=== PATIENT | female | born 1970 | race Caucasian/White ===

== ENCOUNTER 2017-01-14 19:31 | Emergency (ER) | payer SELFPAY ==
[2017-01-14] MEDS ORDERED: Cyclobenzaprine TAB* 10 MG PO ONE ×2 (21:56→22:06)
[2017-01-14] MEDS ORDERED: HYDROcodone/ACETAMIN 5-325 MG* 1 TAB PO ONE ×2 (21:56→22:06)
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
--- NOTE | 2017-01-14 23:06 | RAD ---
INDICATION: Chest wall pain. COMPARISON: There are no prior studies available for comparison. TECHNIQUE: A portable view of the chest was obtained. FINDINGS: Cardiac and mediastinal contours appear to be within normal limits. The lungs are underinflated and clear. No pleural effusion or pneumothorax is seen. IMPRESSION: NO EVIDENCE FOR ACUTE DISEASE.
[2017-01-15 01:38] VITALS: BP 105/65
== END 2017-01-14 23:30 | disposition home or self-care (01) ==
LOC: ED 19:31
DX: S10.93XA Contusion of unspecified part of neck, initial encounter (principal); R07.9 Chest pain, unspecified; R07.89 Other chest pain; V49.9XXA Car occupant (driver) (passenger) injured in unspecified traffic accident, initial encounter; Y93.9 Activity, unspecified; Y92.9 Unspecified place or not applicable; Y99.9 Unspecified external cause status; Z87.891 Personal history of nicotine dependence
CPT/HCPCS: 71010; 93005; 99283; A9270-GY

== ENCOUNTER 2017-04-17 15:53 | Inpatient (IN) | payer BC ==
[2017-04-17] MEDS ORDERED: Acetaminophen TAB* 325 MG PO ONE (16:59)
[2017-04-17] MEDS ORDERED: NS 0.9% 1000 ML* 3,000 ML IV ONE (16:59)
--- NOTE | 2017-04-17 18:42 | RAD ---
INDICATION: Fever and pneumonia COMPARISON: Chest x-ray dated January 14, 2017 TECHNIQUE: Single AP portable view of the chest was obtained. FINDINGS: Image quality is compromised due to the relative inferiority of a portable chest x-ray and the patient's obese body habitus. The heart and mediastinum exhibit normal size and contour. The lung volumes appear low likely due to poor inspiratory effort. Lungs are grossly clear. There is no evidence of a large pleural effusion. Visualized bones are normal for the patient's age. IMPRESSION: Image quality is limited by the inherent inferiority a portable chest x-ray and further limited by the patient's obese body habitus. The lung volumes appear low which May simply be due to poor inspiratory effort. I recommend standard chest x-ray in the AP and lateral view to better discern any cardiopulmonary pathology.
--- NOTE | 2017-04-17 18:55 | ED ---
I, Oh,Soohthaiun, scribed for Kayode Streeter MD on 04/17/17 at 1724 . Skin Complaint - HPI Summary HPI Summary: This 46 y/o female presents to ED for skin boil on right buttock since 6 days ago. Pt was getting out of shower when she became weak in legs, fell down, and burst the boil with drainage. She also reports difficulty getting back up. Positive subjective fever, decreased appetite, n/v. Temperature of 100.2 F is noted at time of triage. Negative abd pain, dysuria, or leg pain. Hot compresses did not make it better. Sitting makes the pain worse. PMHx includes HTN, DM, and HLD. Family member present at bedside reports that pt has hx of skin infection. Allergies information with PCN is reviewed and confirmed. Plan of care involving CT scan is discussed, and pt is agreeable. - History of Current Complaint Chief Complaint: EDRashSkinAbscess Time Seen by Provider: 04/17/17 16:57 Stated Complaint: BOIL,FALL Hx Obtained From: Patient, Medical Records Onset/Duration: Still Present Timing: Constant Pain Intensity: 8 Pain Scale Used: 0-10 Numeric Skin Location: Other: - right buttock Aggravating Symptom(s): Other: - sitting Alleviating Symptom(s): Heat Associated Signs & Symptoms: Nausea, Vomiting, Fever - Allergy/Home Medications Allergies/Adverse Reactions: Allergies Allergy/AdvReac Type Severity Reaction Status Date / Time Penicillins [PCN] Allergy Rash Verified 01/14/17 20:29 PMH/Surg Hx/FS Hx/Imm Hx Endocrine/Hematology History: Reports: Hx Diabetes Cardiovascular History: Reports: Hx Hypercholesterolemia, Hx Hypertension Infectious Disease History: No Infectious Disease History: Denies: Traveled Outside the [place] in Last 30 Days - Family History Known Family History: Positive: Hypertension - Social History Alcohol Use: Rare Substance Use Type: Reports: None Smoking Status (MU): Former Smoker Review of Systems Positive: Fever Positive: Vomiting, Nausea, Other - decreased appetite. Negative: Abdominal Pain Negative: dysuria Negative: Other - leg pain Positive: Other - "boil" at right buttock Neurological: Other - Positive for fall Positive: Weakness - general All Other Systems Reviewed And Are Negative: Yes Physical Exam - Summary Physical Exam Summary: The patient is well-nourished in no acute distress and in no acute pain. The skin is warm to touch. 12 cm x 19 cm fluctuance noted. Negative drainage site. HEENT: The head is normocephalic and atraumatic. The pupils are equal and reactive. The conjunctivae are clear and without drainage. Nares are patent and without drainage. Mouth reveals moist mucous membranes and the throat is without erythema and exudate. The external ears are intact. The ear canals are patent and without drainage. The tympanic membranes are intact. Neck is supple with full range of motion and non-tender. Respiratory: Chest is non-tender. Lungs are clear to auscultation and breath sounds are symmetrical and equal. Cardiovascular: Hear is regular rate and rhythm. There is no murmur or rub auscultated. There is no peripheral edema and pulses are symmetrical and equal. Abdomen: The abdomen is soft and non-tender. Musculoskeletal: There is no back pain noted. Extremities are non-tender with full range of motion. There is good capillary refill. There is no peripheral edema or calf tenderness elicited. Neurological: Patient is alert and oriented to person, place and time. The patient has symmetrical motor strength in all four extremities. Cranial nerves are grossly intact. Deep tendon reflexes are symmetrical and equal in all four extremities. Psychiatric: The patient has an appropriate affect and does not exhibit any anxiety or depression. Examined in presence of vivien Neely as female medical bill processor. Triage Information Reviewed: Yes Vital Signs On Initial Exam: Initial Vitals Temp Pulse Resp BP Pulse Ox 100.2 F 115 16 101/78 96 04/17/17 15:58 04/17/17 15:58 04/17/17 15:58 04/17/17 15:58 04/17/17 15:58 Vital Signs Reviewed: Yes Diagnostics - Vital Signs Vital Signs Temp Pulse Resp BP Pulse Ox 04/17/17 15:58 100.2 F 115 16 101/78 96 - Laboratory Lab Statement: Any lab studies that have been ordered have been reviewed, and results considered in the medical decision making process. - Radiology CXR Radiology Interpretation Completed By: Radiologist - Pending at this moment. See EMR for official reading. - CT Ab/P CT Interpretation Completed By: Radiologist - Pending at this moment. See EMR for official reading. Course/Dx - Course Assessment/Plan: This 46 y/o female presents to ED for right buttock abscess that wsa "popped" this morning when pt got out of shower and fell. Pt reports difficulty getting back up due to general weakness. Upon examination, pt is noted with 19 cm x 12 cm abscess, fluctuant, across right buttock. Pt is warm to touch. Temperature of 100.2 F is noted at triage. CT Ab/P, CXR, blooidwork are pending. Pt is signed out at shift change. - Differential Diagnoses - Skin Complaint Differential Diagnoses: Abscess, Cellulitis, Other - sepsis, dehyration, dm - Diagnoses Provider Diagnoses: Abscess of right buttock Discharge - Discharge Plan Condition: Stable Disposition: OTHER Discharge Disposition Comment: Signed out at shift change. CT Ab/P, CXR, and bloodwork. Referrals: Immanuel CAMPBELL,Tmi Cam [Primary Care Provider] - The documentation as recorded by the Gopal puga Soohyun accurately reflects the service I personally performed and the decisions made by me, Kayode Streeter MD.
[2017-04-17 18:58] LABS: Hematocrit 36 % (35-47); Hemoglobin 11.2 g/dl (12.0-16.0); Mean Corpuscular HGB Conc 32 g/dl (31-36); Mean Corpuscular Hemoglobin 30 pg (27-31); Mean Corpuscular Volume 95 fL (80-97); Mean Platelet Volume 10 um3 (7.4-10.4); Red Blood Count 3.73 10^6/ul (4.0-5.4); Red Cell Distribution Width 14 % (10.5-15); White Blood Count 32.6 10^3/ul (3.5-10.8)
[2017-04-17 18:59] LABS: Comments Flag Yes
[2017-04-17 19:00] LABS: Add Diff/Slide Review? Slide Review Added
[2017-04-17 19:14] LABS: Albumin 2.1 g/dL (3.2-5.2); BUN/Creatinine Ratio 23.8 (8-20); C Reactive Protein 295.51 mg/L (< 5.00); Calcium 8.6 mg/dL (8.6-10.3); EGFR African American 44.8 (>60); EGFR Non-African American 34.9 (>60); Potassium 3.8 mmol/L (3.5-5.0); Total Bilirubin 0.4 mg/dL (0.2-1.0); Total Protein 6.1 g/dL (6.4-8.9)
[2017-04-17 19:17] LABS: Troponin I 0.14 ng/mL (<0.04)
[2017-04-17] MEDS ORDERED: Insulin REGULAR(*) 1 UNITS UNIT IV ONE (19:20)
[2017-04-17] MEDS ORDERED: Iodixanol* (CONTRAST) 320 MG/ML 100 ML SDV IV ONE (19:27)
--- NOTE | 2017-04-17 20:18 | RAD ---
CLINICAL HISTORY: Abscess overlying the right buttock with complaints of feeling "on well" with chills and loss of appetite. COMPARISON: None TECHNIQUE: Contrast enhanced CT examination of the abdomen and pelvis from the lung bases through the initial tuberosities. The patient received 141 mL Visipaque 320 intravenously prior to imaging.The patient received oral contrast as well prior to imaging. FINDINGS: The left lateral anterior abdominal wall and left flank are partially obscured due to the patient's body habitus exceeding the size of the CT gantry. VISUALIZED LUNG BASES: The visualized lung bases are grossly clear. There is no pleural effusion. ABDOMEN AND PELVIS: The liver, spleen, pancreas and adrenal glands are grossly normal in appearance. The gallbladder is normal. The kidneys are normal in appearance without focal mass, calcification or signs of hydronephrosis. Evaluation is limited without oral contrast. The small and large bowel are not distended. The patient's normal appendix is identified in the right lower quadrant with air partially filling the lumen (image 67 of 128). There is no gross retroperitoneal or mesenteric lymphadenopathy. In the superior lateral aspect of the right retroperitoneal fat there is a fluid density structure measuring 3.6 cm in greatest axial dimension (image 34 of 128). The pelvic viscera is normal in appearance. In the right inguinal region there are cluster of top normal but not pathologically enlarged subcutaneous lymph nodes measuring up to 9 mm in short axis diameter. There is coarse calcification of the lower abdominal aorta extending into the bilateral common iliac arteries There is induration overlying the right greater than left subcutaneous tissue of the buttocks. There is induration extends to the midline where there is at least one focus of gas and a partially fluid density collection measuring 15 x 36 mm in the axial plane (image 90 December 19, 2027). Degenerative changes include multilevel loss of intervertebral disc height involving the lower thoracic and lumbar spine.There are no sinister bone lesions. IMPRESSION: 1. There is mixed attenuation collection in the subcutaneous tissue at the midline right buttock including subcutaneous fluid and at least one focus of gas. CT findings are consistent with subcutaneous abscess or possibly a pilonidal cyst infection. 2. There are cluster of top normal but not pathologically enlarged lymph nodes in the right inguinal region. Please correspond to any clinical symptoms. 3. There are additional chronic and degenerative changes described in the body the report.
[2017-04-17] MEDS ORDERED: Acetaminophen TAB* 325 MG PO PRN (20:33)
[2017-04-17] MEDS ORDERED: Dextrose 50% Syringe 50 ML* 25 GM/50 ML SYRINGE IV PUSH PRN (20:33)
[2017-04-17] MEDS ORDERED: Vancomycin(*) 1,500 MG in NS 0.9% 250 ML* 250 ML IVPB ONE (20:40)
[2017-04-17] MEDS ORDERED: NS 0.9% 1000 ML* 1,000 ML IV SCH (20:45)
[2017-04-17 20:56] LABS: Venous Bicarbonate HCO3 21.6 mmol/L (24-28)
[2017-04-17] MEDS ORDERED: Cefepime(*) 2 GM in NS 0.9% 50 ML* 50 ML IVPB SCH (21:00)
[2017-04-17 21:09] LABS: BUN/Creatinine Ratio 21.8 (8-20); EGFR African American 43.3 (>60); EGFR Non-African American 33.6 (>60); Potassium 3.5 mmol/L (3.5-5.0)
[2017-04-17 21:15] LABS: Troponin I 0.12 ng/mL (<0.04)
[2017-04-17] MEDS: HYDROmorphone* 1 MG/ML 1 ML SYR IV SLOW PU PRN (22:04)
[2017-04-17] MEDS ORDERED: Al Hydrox/Mg Hydrox/Simet LIQ* 30 ML UDC PO PRN (22:12)
[2017-04-17] MEDS: Ondansetron INJ* 2 MG/ML VIAL IV PRN (22:17)
[2017-04-17] MEDS: Heparin VIAL(*) 5000 UNITS/ML VIAL (FIVE THOUSAND) SUBCUT SCH (22:36)
[2017-04-17] MEDS: NS 0.9% w/ 20 Meq KCL 1000 ML* 1,000 ML IV SCH (23:14)
[2017-04-17] MEDS: Insulin LISPRO* 1 UNITS UNIT SUBCUT SCH (23:17)
[2017-04-18 00:53] LABS: Calcium 7.7 mg/dL (8.6-10.3); EGFR African American 44.2 (>60); EGFR Non-African American 34.4 (>60); Potassium 3.8 mmol/L (3.5-5.0)
[2017-04-18 00:58] LABS: Troponin I 0.13 ng/mL (<0.04)
[2017-04-18] MEDS: Insulin LISPRO* 1 UNITS UNIT SUBCUT SCH ×14 (01:14→20:56)
[2017-04-18] MEDS ORDERED: Vancomycin per Pharmacy* NOTE FOLLOW UP PRN (01:53)
[2017-04-18 05:02] LABS: Add Diff/Slide Review? Slide Review Added; Comments Flag Yes; Hematocrit 31 % (35-47); Mean Corpuscular HGB Conc 33 g/dl (31-36); Mean Corpuscular Hemoglobin 31 pg (27-31); Mean Corpuscular Volume 94 fL (80-97); Mean Platelet Volume 10 um3 (7.4-10.4); Red Blood Count 3.26 10^6/ul (4.0-5.4); Red Cell Distribution Width 13 % (10.5-15); White Blood Count 28.2 10^3/ul (3.5-10.8)
[2017-04-18 05:08] LABS: BUN/Creatinine Ratio 21.2 (8-20); Calcium 7.8 mg/dL (8.6-10.3); EGFR African American 43.3 (>60); EGFR Non-African American 33.6 (>60); Potassium 3.5 mmol/L (3.5-5.0)
[2017-04-18] MEDS: Omeprazole CAP* 20 MG PO SCH (05:21)
[2017-04-18] MEDS: Ondansetron INJ* 2 MG/ML VIAL IV PRN ×3 (05:22→21:05)
[2017-04-18] MEDS: Heparin VIAL(*) 5000 UNITS/ML VIAL (FIVE THOUSAND) SUBCUT SCH ×3 (05:48→22:24)
[2017-04-18] MEDS: NS 0.9% w/ 20 Meq KCL 1000 ML* 1,000 ML IV SCH ×3 (06:16→22:17)
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
[2017-04-18] MEDS: Vancomycin(*) 1,250 MG in NS 0.9% 250 ML* 250 ML IVPB SCH ×2 (10:35→22:22)
[2017-04-18 10:42] LABS: BUN/Creatinine Ratio 21.8 (8-20); Calcium 7.7 mg/dL (8.6-10.3); EGFR African American 46.2 (>60); EGFR Non-African American 35.9 (>60); Potassium 3.8 mmol/L (3.5-5.0)
[2017-04-18] MEDS ORDERED: Insulin GLARGINE(*) 1 UNITS UNIT SUBCUT ONE ×2 (10:59→21:00)
[2017-04-18] MEDS: Cefepime(*) 2 GM in NS 0.9% 50 ML* 50 ML IVPB SCH (11:37)
--- NOTE | 2017-04-18 12:44 | PN ---
Subjective Date of Service: 04/18/17 Interval History: Ms. Whitehead states that she is feeling a bit better than yesterday though she continues to feel tired and have significant pain in her right buttock. She denies chest pain, SOB, nausea, or abdominal pain. Objective Active Medications: Acetaminophen (Tylenol Tab*) 650 mg PO Q4H PRN Al Hydrox/Mg Hydrox/Simethicone (Maalox Plus*) 30 ml PO Q2H PRN Atorvastatin Calcium (Lipitor*) 20 mg PO 1700 JOSE Cyclobenzaprine HCl (Flexeril Tab*) 10 mg PO TID PRN Dextrose (D50w Syringe 50 Ml*) 12.5 gm IV PUSH .FOR FS < 60 - SS PRN Heparin Sodium (Porcine) (Heparin Vial(*)) 5,000 units SUBCUT Q8HR JOSE Hydromorphone HCl (Dilaudid Iv*) 1 mg IV SLOW PU Q4H PRN Potassium Chloride/Sodium Chloride (Ns 0.9% W/ 20 Meq Kcl 1000 Ml*) 1,000 mls @ 150 mls/hr IV PER RATE JOSE Cefepime HCl 2 gm/ Sodium (Chloride) 50 mls @ 100 mls/hr IVPB 0000,1200 JOSE Vancomycin HCl 1,250 mg/ (Sodium Chloride) 250 mls @ 166.667 mls/hr IVPB Q12H JOSE Insulin Glargine (Lantus(*)) 30 units SUBCUT ONCE ONE Insulin Human Lispro (Humalog*) 0 units SUBCUT FS Q2 ICU JOSE Losartan Potassium (Cozaar Tab*) 50 mg PO DAILY JOSE Omeprazole (Prilosec Cap*) 20 mg PO 0600 JOSE Ondansetron HCl (Zofran Inj*) 4 mg IV Q4H PRN Pharmacy Consult (Vancomycin Per Pharmacy*) 1 note FOLLOW UP . PRN Pharmacy Profile Note (Vancomycin Trough Check) 1 note FOLLOW UP 0930 ONE Vital Signs 04/17/17 04/17/17 04/17/17 21:07 21:27 21:30 Temperature Pulse Rate 114 110 105 Respiratory Rate Blood Pressure 163/81 180/108 (mmHg) O2 Sat by Pulse 94 95 93 Oximetry 04/17/17 04/17/17 04/17/17 21:36 21:40 21:52 Temperature 99.6 F Pulse Rate 97 Respiratory Rate Blood Pressure 148/75 (mmHg) O2 Sat by Pulse 96 Oximetry 04/17/17 04/17/17 04/17/17 21:59 22:00 22:04 Temperature 99.2 F Pulse Rate 86 105 Respiratory 16 21 25 Rate Blood Pressure 148/75 155/66 (mmHg) O2 Sat by Pulse 96 95 Oximetry 04/17/17 04/17/17 04/17/17 22:15 22:30 22:45 Temperature Pulse Rate 99 100 105 Respiratory 24 23 25 Rate Blood Pressure 135/69 122/60 120/59 (mmHg) O2 Sat by Pulse 95 94 96 Oximetry 04/17/17 04/17/17 04/17/17 23:00 23:15 23:29 Temperature Pulse Rate 106 105 104 Respiratory 23 23 22 Rate Blood Pressure 121/63 120/63 (mmHg) O2 Sat by Pulse 95 96 96 Oximetry 04/17/17 04/17/17 04/17/17 23:30 23:45 23:53 Temperature Pulse Rate 105 105 Respiratory 22 22 25 Rate Blood Pressure 117/65 134/69 (mmHg) O2 Sat by Pulse 96 96 Oximetry 04/18/17 04/18/17 04/18/17 00:00 00:01 00:15 Temperature 98.5 F Pulse Rate 105 106 106 Respiratory 22 22 23 Rate Blood Pressure 136/64 131/68 (mmHg) O2 Sat by Pulse 97 97 96 Oximetry 04/18/17 04/18/17 04/18/17 00:30 01:00 01:30 Temperature Pulse Rate 104 108 Respiratory 22 23 Rate Blood Pressure 131/68 125/67 136/71 (mmHg) O2 Sat by Pulse 96 96 Oximetry 04/18/17 04/18/17 04/18/17 02:00 02:30 03:00 Temperature Pulse Rate 107 107 103 Respiratory 23 25 24 Rate Blood Pressure 145/76 124/55 135/70 (mmHg) O2 Sat by Pulse 96 95 95 Oximetry 04/18/17 04/18/17 04/18/17 03:30 04:00 04:30 Temperature 98.1 F Pulse Rate 103 104 104 Respiratory 23 25 25 Rate Blood Pressure 144/71 127/72 144/71 (mmHg) O2 Sat by Pulse 96 96 96 Oximetry 04/18/17 04/18/17 04/18/17 05:00 05:30 06:00 Temperature Pulse Rate 105 108 107 Respiratory 25 27 26 Rate Blood Pressure 107/72 129/63 134/67 (mmHg) O2 Sat by Pulse 96 95 97 Oximetry 04/18/17 04/18/17 04/18/17 06:30 07:00 07:30 Temperature Pulse Rate 108 111 107 Respiratory 25 22 25 Rate Blood Pressure 139/67 137/52 121/60 (mmHg) O2 Sat by Pulse 96 97 96 Oximetry 04/18/17 04/18/17 04/18/17 08:00 08:30 09:00 Temperature 100.6 F Pulse Rate 104 101 95 Respiratory 25 21 19 Rate Blood Pressure 121/57 127/59 128/75 (mmHg) O2 Sat by Pulse 95 97 97 Oximetry 04/18/17 04/18/17 04/18/17 09:30 10:00 10:30 Temperature Pulse Rate 96 97 Respiratory 24 24 Rate Blood Pressure 136/74 134/70 131/75 (mmHg) O2 Sat by Pulse 96 97 Oximetry 04/18/17 04/18/17 11:00 11:30 Temperature Pulse Rate 100 94 Respiratory 24 22 Rate Blood Pressure 143/76 134/68 (mmHg) O2 Sat by Pulse 97 96 Oximetry Oxygen Devices in Use Now: None Appearance: Female lying in bed in NAD Eyes: No Scleral Icterus Ears/Nose/Mouth/Throat: Mucous Membranes Moist Neck: Trachea Midline Respiratory: Symmetrical Chest Expansion and Respiratory Effort, Clear to Auscultation Cardiovascular: NL Sounds; No Murmurs; No JVD, No Edema Abdominal: NL Sounds; No Tenderness; No Distention Lymphatic: No Cervical Adenopathy Extremities: No Edema Skin: - - Right medial buttock edematous with erythema Neurological: Alert and Oriented x 3, NL Muscle Strength and Tone Nutrition: Taking PO's Result Diagrams: 04/18/17 04:35 04/18/17 10:00 Microbiology and Other Data: Microbiology 04/17/17 21:55 Nasal Screen MRSA (PCR)(ELADIO) - Final Nasal Mrsa Negative Assess/Plan/Problems-Billing Assessment: Ms. Whitehead is a 46 yo female with a PMH of DM, obesity, HTN who was admitted on 04/17/17 with right buttock abscess and marked hyperglycemia. - Patient Problems (1) Abscess Comment: - CT confirms abscess to right buttock. - WBC remains > 20 but improved, Tmax 100.6. CRP ~ 300. - Appreciate surgical consult, plan for OR today for I&D. - Continue vanco and cefepime, ID consult pending. (2) Diabetes Comment: - BG remains elevated. - Resume lower dose home lantus while NPO. - HgbA1c 14. (3) Hypertension Comment: - SBP 130-140s. - Continue home losartan. (4) DVT prophylaxis Comment: - Heparin SQ. (5) Full code status Status and Disposition: Inpatient with expected LOS > 2 days. Home when medically stable.
[2017-04-18] MEDS ORDERED: Cisatracurium* 2 MG/ML MDV 5 ML ONE (13:07)
[2017-04-18] MEDS ORDERED: Midazolam* 1 MG/ML 2 ML VIAL (2 MG) ONE (13:09)
[2017-04-18] MEDS ORDERED: KETAMINE HCL* 50 MG/ML 10 ML VIAL ONE (13:28)
[2017-04-18] MEDS ORDERED: fentaNYL* 50 MCG/ML 2 ML VIAL (100 MCG VIAL) ONE ×2 (13:28→14:28)
[2017-04-18] MEDS ORDERED: Famotidine IV* 10 MG/ML 2 ML (20 mg) ONE (13:29)
[2017-04-18] MEDS ORDERED: Propofol* 10 MG/ML 20 ML BTL IV PUSH ONE (13:29)
[2017-04-18] MEDS ORDERED: Lidocaine 2% PF * 5 ML VIAL ONE (13:29)
[2017-04-18] MEDS ORDERED: Dexamethasone IV* 4 MG/ML 1 ML (4 MG) ONE (13:29)
[2017-04-18] MEDS ORDERED: Phenylephrine IV* 40 MCG/ML 10 ML SYRINGE ONE (13:31)
[2017-04-18] MEDS ORDERED: Ondansetron INJ* 2 MG/ML VIAL IV PRN (13:54)
--- NOTE | 2017-04-18 14:06 | PN ---
Progress Note - Progress Note Date of Service: 04/18/17 Note: Brief Operative Note: Pre-op: Albina-rectal abscess, Leukocytosis Post-op: same Procedure: Incision and drainage of perirectal abscess. Surgeon: Dr. Mueller Supervisor Spinning: None EBL: Minimal Anaesthesia: MAC and local Fluids: LR 1000 cc Specimen: None Catheter: None Drains: None Findings; See dictated op note
[2017-04-18] MEDS: fentaNYL* 50 MCG/ML 2 ML VIAL (100 MCG VIAL) IV PRN ×2 (14:28→14:33)
[2017-04-18] MEDS ORDERED: HYDROmorphone* 1 MG/ML 1 ML SYR ONE (14:30)
[2017-04-18] MEDS: HYDROmorphone* 1 MG/ML 1 ML SYR IV SLOW PU PRN ×2 (14:32→21:05)
[2017-04-18] MEDS ORDERED: Insulin LISPRO* 1 UNITS UNIT SUBCUT ONE (14:43)
[2017-04-18] MEDS: Atorvastatin* 20 MG TAB PO SCH (16:17)
--- NOTE | 2017-04-18 20:31 | CONS ---
CC: Dr. nKutson; Dr. iTm Gambino * CONSULTATION REPORT: DATE OF CONSULT: 04/18/17 HISTORY: The patient is a 46-year-old female, who presents to the hospital with DKA and a perirectal infection. She was admitted by the hospitalist service and they have asked me to consult regarding the perianal infection. She does not have any prior history of perianal abscesses or fissures or Crohn' s disease or colitis or anything of the sort. She says this just started as a kind of pimple that started growing and getting more painful. She was trying warm soaks, but it kept advancing, so she presented to the emergency room. She is an obese diabetic. PHYSICAL EXAM: She is morbidly obese. She does not appear acutely ill. She is alert and coherent. She is complaining of pain in the right perianal area. On examination, there is erythema and induration from just below the coccyx down to the perianal area on the right side of midline, it does not cross over to the left side appreciably. There is some induration and tenderness all along this area. Maybe 5 cm above the anus, there is an area of what appears to be maximal induration and maximal fluctuance, so I think this is where the worst of the abscess is and that would correlate with the CT scan as well. There is a little bit of clear fluid oozing forth from this area, but it is not really opened. DIAGNOSTIC STUDIES/LAB DATA: I reviewed her CT scan and her laboratory studies. IMPRESSION: A 46-year-old morbidly obese diabetic, who comes in with diabetic ketoacidosis secondary to a perianal infection. PLAN: She needs an incision and drainage of the abscess and her sugars have been brought under better control, so I think she is in reasonable shape to go to the operating room and I do not think that she is going to be able to get too much better in terms of her medical situation until the infection is better controlled, so I think she needs incision and drainage of her right perirectal abscess and she is agreeable to having this done in the operating room sometime today. [id number]/[facility] #: [id number] MTDD
--- NOTE | 2017-04-18 22:20 | CONS ---
CONSULTATION REPORT: DATE OF CONSULT: 04/18/17 REQUESTING PHYSICIAN: Nolvia Guillen NP CONSULTING SERVICE: Infectious Disease. REASON FOR CONSULT: Right buttock abscess. IMPRESSION: 1. Right medial buttock, large area of induration, erythema, warmth consistent with abscess. She has not had a history of these. 2. Insulin-dependent diabetes, at the time of admission with hyperglycemia, hyperosmolar nonketotic state. RECOMMENDATION: Continue vancomycin and cefepime. We will await the cultures from incision and debridement. Usually these are due to gram-positives including staph or strep, but with immunocompromise due to insulin-dependent diabetes, gram- negatives are a consideration. HISTORY OF PRESENT ILLNESS: This is a 46-year-old diabetic admitted with malaise, fatigue, right buttock pain for about a week. Because of progression of her symptoms, it did not improve with warm compress and because of draining fluid, chills, fever, and anorexia, she came to the hospital yesterday. Her creatinine was 1.6, glucose was 750. She was started on insulin, vancomycin, cefepime. CT was done that confirmed the soft tissue abscess versus pilonidal cyst. She had been seen by Dr. Knutson who is going to take her to the OR today. Her pain is persistent, severe, worse with movement. No hip pain. Fevers are improved. She has no chills or sweats. She is hungry. She has not had an infection like this in the past. PAST MEDICAL HISTORY: 1. Insulin-dependent diabetes. 2. Hypertension. 3. Hyperlipidemia. 4. Obesity. ALLERGIES: PENICILLIN, rash as a child. MEDICATIONS: 1. Tylenol. 2. Lipitor. 3. Cefepime 2 g every 12 hours. 4. Insulin glargine. 5. Insulin lispro. 6. Omeprazole. 7. Vancomycin 1250 mg every 12 hours. SOCIAL HISTORY: Past smoker. She lives in [place]. She is a counselor. She is . FAMILY HISTORY: Mother is alive at 65 with seasonal allergies. Father alive at 65 with hypertension. REVIEW OF SYSTEMS: All negative to a full review of systems except as noted above. PHYSICAL EXAM: Vital Signs: Temperature 38, heart rate 97, respiratory rate 20 , blood pressure 134/70, O2 sat 97% on room air. General: She is awake, not in distress. Neurologic: She is oriented x3. Follows all commands. Answers all questions appropriately. Moves all extremities. HEENT: There is no conjunctival hemorrhage. Oropharynx without lesions. Mucous membranes are dry. Neck is supple without nuchal rigidity. Lymph Nodes: There is no supraclavicular, inguinal, axillary or epitrochlear lymphadenopathy. Heart has regular rate and rhythm without murmurs, rubs, or gallops. Lungs are clear to auscultation bilaterally. Abdomen: Soft, nontender, and nondistended. There are bowel sounds present. Skin: There is no rash or splinter hemorrhage. There is a 6-cm area of warmth, induration, erythema in the right upper medial buttock. Musculoskeletal: There is no spine tenderness to palpation. There is no joint synovitis. LABORATORY DATA: Creatinine 1.5. White blood cell count 28, down from 32, hemoglobin 10, platelets 204. Please see impressions and recommendations outlined above, which I have discussed with Nolvia Guillen NP. Thank you for asking me to see Ms. Whitehead in consultation. [id number]/[facility] #: [id number] [facility] NYACK HOSPITALEstefania
[2017-04-19] MEDS: Cefepime(*) 2 GM in NS 0.9% 50 ML* 50 ML IVPB SCH ×2 (00:09→12:51)
[2017-04-19] MEDS: HYDROmorphone* 1 MG/ML 1 ML SYR IV SLOW PU PRN ×3 (04:24→18:47)
[2017-04-19] MEDS: Omeprazole CAP* 20 MG PO SCH (05:26)
[2017-04-19] MEDS: Heparin VIAL(*) 5000 UNITS/ML VIAL (FIVE THOUSAND) SUBCUT SCH ×3 (05:27→21:51)
[2017-04-19] MEDS: NS 0.9% w/ 20 Meq KCL 1000 ML* 1,000 ML IV SCH ×3 (08:07→19:23)
[2017-04-19] MEDS: Cyclobenzaprine TAB* 10 MG PO PRN ×2 (08:10→16:50)
[2017-04-19] MEDS: Losartan TAB* 25 MG PO SCH (08:10)
[2017-04-19] MEDS: Ondansetron INJ* 2 MG/ML VIAL IV PRN (08:42)
[2017-04-19] MEDS: Insulin LISPRO* 1 UNITS UNIT SUBCUT SCH ×4 (08:48→21:49)
[2017-04-19] MEDS ORDERED: Vancomycin Trough Check NOTE FOLLOW UP ONE (09:30)
[2017-04-19] MEDS ORDERED: HYDROmorphone* 1 MG/ML 1 ML SYR IV SLOW PU ONE (10:13)
[2017-04-19] MEDS: Vancomycin(*) 1,250 MG in NS 0.9% 250 ML* 250 ML IVPB SCH (10:23)
--- NOTE | 2017-04-19 10:52 | SURGPN ---
Subjective - Introduction -: Admitted on: 04/17/2017 Patient's surgical date: 04/18/2017 Reports doing much better overall. Minimal pain, mostly with pressure to the left buttock. Denies fever or chills. Appetite better, wants to take it slowly with food. Better glycemic control yesterday. - Medications -: Active Medications Generic Name Dose Route Start Last Admin Trade Name Freq PRN Reason Stop Dose Admin Acetaminophen 650 mg 04/17/17 20:33 04/18/17 21:05 Tylenol Tab* PO 650 mg Q4H PRN Administration FEVER/PAIN Al Hydrox/Mg Hydrox/Simethicone 30 ml 04/17/17 22:12 Maalox Plus* PO Q2H PRN INDIGESTION Atorvastatin Calcium 20 mg 04/18/17 17:00 04/18/17 16:17 Lipitor* PO 20 mg 1700 JOSE Administration Cyclobenzaprine HCl 10 mg 04/18/17 11:05 04/19/17 08:10 Flexeril Tab* PO 10 mg TID PRN Administration PAIN Dextrose 12.5 gm 04/17/17 20:33 D50w Syringe 50 Ml* IV PUSH .FOR FS < 60 - SS PRN FS < 60 Heparin Sodium (Porcine) 5,000 units 04/17/17 22:00 04/19/17 05:27 Heparin Vial(*) SUBCUT 5,000 units Q8HR JOSE Administration Hydromorphone HCl 1 mg 04/17/17 21:06 04/19/17 08:37 Dilaudid Iv* IV SLOW PU 1 mg Q4H PRN Administration PAIN Potassium Chloride/Sodium Chloride 1,000 mls @ 150 mls/hr 04/17/17 22:00 10/05 08:07 Ns 0.9% W/ 20 Meq Kcl 1000 Ml* IV 150 mls/hr PER RATE JOSE Administration Cefepime HCl 2 gm/ Sodium 50 mls @ 100 mls/hr 04/18/17 12:00 04/19/17 00:09 Chloride IVPB 100 mls/hr 0000,1200 JOSE Administration Vancomycin HCl 1,000 mg/ 250 mls @ 166.667 mls/hr 04/19/17 22:00 Sodium Chloride IVPB Q12H JOSE Insulin Human Lispro 0 units 04/19/17 07:30 04/19/17 08:48 Humalog* SUBCUT 9 unit ACHS JOSE Administration Protocol Losartan Potassium 50 mg 04/19/17 09:00 04/19/17 08:10 Cozaar Tab* PO 50 mg DAILY JOSE Administration Omeprazole 20 mg 04/18/17 06:00 04/19/17 05:26 Prilosec Cap* PO 20 mg 0600 JOSE Administration Ondansetron HCl 4 mg 04/17/17 20:32 04/19/17 08:42 Zofran Inj* IV 4 mg Q4H PRN Administration NAUSEA Pharmacy Consult 1 note 04/18/17 01:53 Vancomycin Per Pharmacy* FOLLOW UP . PRN PER PROTOCOL Pharmacy Profile Note 1 note 04/21/17 10:00 Vancomycin Trough Check FOLLOW UP 04/21/17 10:01 1000 ONE Objective - Objective -: Awake and alert, laying on her right side, appears comfortable and in NAD. - Intake and Output -: Intake & Output 04/17/17 04/18/17 04/19/17 04/20/17 06:59 06:59 06:59 06:59 Intake Total 2728 1679 Output Total 450 600 0 Balance 2278 1079 0 Weight 285 lb 15.033 oz Intake: IV Fluids 2668 1379 ABX - CEFEPIME 60 ABX - VANCOMYCIN 260 NS (0.9%) 1348 NS (0.9%) 20 meq KCL 1000 679 lr 700 IVPB 300 ABX - CEFEPIME 50 ABX - VANCOMYCIN 250 Oral 60 0 Output: Urine 450 600 0 Other: # Bowel Movements 0 Surgical Physical Exam - Comments -: VSS, Tmax 100.6, 98.2 this AM Left buttock on exam with large indurated area surrounding the I%D site, minimally tender. Mild surrounding erythema as well. No active bleeding or discharge noted. Packing removed after patient was given an extra dose of 0.5 mg of Dilaudid. Waound cavity appears clean and dry. No purulent discharge noted. No bleeding. New packing applied using 4 inch Kerlex gauze with 0.9% NS wet to dry dressing. ABD pads and tape applied. Patient tolerated packing change well. No labs drawn today. Assessment and Plan - Assessment -: Morbidly obese 46 y/o female DKA and felicita-rectal abscess, POD#1, s/p I&D of left felicita-rectal abscess. - Plan Additional Comments: Continue IV Abx Preliminary cultures revealed gram positive rods, negative for MRSA or S. aureus. Await final Culture and sensitivity. Diet as tolerated. Ambulate as tolerated. Medical management and glycemic control per medicine. Daily packing change with 4 inch wet to dry Kerlex.
--- NOTE | 2017-04-19 13:34 | PN ---
Progress Note - Progress Note Date of Service: 04/19/17 SOAP: Subjective: CC: abscess HPI: 46 yo woman with HHNK and right medial buttock abscess s/p I&D. Buttock pain a little better. No fever, rash, or diarrhea. Eating some. Objective: [] Vital Signs Temp 36.9 C 04/19/17 11:27 Pulse 100 04/19/17 11:27 Resp 16 04/19/17 11:27 BP 143/77 04/19/17 11:27 Pulse Ox 90 04/19/17 11:27 Intake & Output 04/18/17 04/19/17 04/19/17 18:59 06:59 18:59 Intake Total 700 979 200 Output Total 600 0 Balance 700 379 200 Weight 292 lb Intake: IV Fluids 700 679 NS (0.9%) 20 meq KCL 679 lr 700 IVPB 300 ABX - CEFEPIME 50 ABX - VANCOMYCIN 250 Oral 0 200 Output: Urine 600 0 Other: Estimated Void Small # Bowel Movements 0 # Voids 1 Gen:awake, no distress HEENT:PERRL, MMM Neck:Supple Heart:RRR no murmur Lungs:CTA BL Abd:+BS NTND soft Skin: no rash MSK:R mediak buttock incision with surrounding induration and mild erythema Laboratory Results - last 24 hr 04/18/17 04/18/17 04/18/17 00:25 14:41 16:03 Sodium 125 L Potassium 3.8 Chloride 93 L Carbon Dioxide 21 L Anion Gap 11 BUN 34 H Creatinine 1.62 H Est GFR ( Amer) 44.2 Est GFR (Non-Af Amer) 34.4 BUN/Creatinine Ratio 21.0 H Glucose 604 H* POC Glucose (mg/dL) 238 H 239 H Calcium 7.7 L Troponin I 0.13 H* Vancomycin Trough 04/18/17 04/18/17 04/19/17 18:16 20:34 08:03 Sodium Potassium Chloride Carbon Dioxide Anion Gap BUN Creatinine Est GFR ( Amer) Est GFR (Non-Af Amer) BUN/Creatinine Ratio Glucose POC Glucose (mg/dL) 241 H 293 H 286 H Calcium Troponin I Vancomycin Trough 04/19/17 04/19/17 09:06 12:29 Sodium Potassium Chloride Carbon Dioxide Anion Gap BUN Creatinine Est GFR ( Amer) Est GFR (Non-Af Amer) BUN/Creatinine Ratio Glucose POC Glucose (mg/dL) 233 H Calcium Troponin I Vancomycin Trough 21.6 Microbiology 04/18/17 13:36 Skin and Soft Tissue MRSA/MSSA (PCR - Final Buttock Mrsa Negative S.aureus Negative Gram Stain - Final Wound Culture - Preliminary Strep Agalactiae - (Group B) 04/18/17 13:36 Anaerobic Culture - Preliminary Wound - Abscess 04/17/17 18:50 Aerobic Blood Culture - Preliminary Blood Venous No Growth Day 1 Anaerobic Blood Culture - Preliminary No Growth Day 1 04/17/17 18:40 Aerobic Blood Culture - Preliminary Blood Venous No Growth Day 1 Anaerobic Blood Culture - Preliminary No Growth Day 1 Assessment: 1. R medial buttock abscess s/p I&D; Grp B Strep, likely polymicrobial 2. HHNK state; IDDM 3. morbid obesity 4. PCN allergy 5. CKD Plan: 1. DC vanco and cefepime, start ceftriaxone 2 gm and flagyl 500 mg IV Q8hrs, re- asses tomorrow may be able to change to PO abx then to finish course Discussed with Dr Mueller
[2017-04-19] MEDS: metroNIDAZOLE IV 500 MG/100ML* 500 MG/100 ML BAG IVPB SCH ×2 (14:17→21:51)
--- NOTE | 2017-04-19 15:36 | PN ---
Subjective Date of Service: 04/19/17 Interval History: Ms. Whitehead states that she is feeling much better today. She denies chest pain, SOB, nausea, or abdominal pain. She has much less pain to her right buttock. Objective Active Medications: Acetaminophen (Tylenol Tab*) 650 mg PO Q4H PRN Al Hydrox/Mg Hydrox/Simethicone (Maalox Plus*) 30 ml PO Q2H PRN Atorvastatin Calcium (Lipitor*) 20 mg PO 1700 JOSE Cyclobenzaprine HCl (Flexeril Tab*) 10 mg PO TID PRN Dextrose (D50w Syringe 50 Ml*) 12.5 gm IV PUSH .FOR FS < 60 - SS PRN Heparin Sodium (Porcine) (Heparin Vial(*)) 5,000 units SUBCUT Q8HR JOSE Hydromorphone HCl (Dilaudid Iv*) 1 mg IV SLOW PU Q4H PRN Potassium Chloride/Sodium Chloride (Ns 0.9% W/ 20 Meq Kcl 1000 Ml*) 1,000 mls @ 150 mls/hr IV PER RATE JOSE Metronidazole/Sodium Chloride (Flagyl 500 Mg Ivpb*) 500 mg in 100 mls @ 100 mls /hr IVPB Q8H JOSE Ceftriaxone Sodium 2 gm/ (Sodium Chloride) 100 mls @ 200 mls/hr IVPB Q24H JOSE Insulin Glargine (Lantus(*)) 45 units SUBCUT 2100 JOSE Insulin Glargine (Lantus(*)) 30 units SUBCUT 0900 JOSE Insulin Human Lispro (Humalog*) 0 units SUBCUT ACHS JOSE Losartan Potassium (Cozaar Tab*) 50 mg PO DAILY JOSE Omeprazole (Prilosec Cap*) 20 mg PO 0600 JOSE Ondansetron HCl (Zofran Inj*) 4 mg IV Q4H PRN Vital Signs 04/18/17 04/18/17 04/18/17 15:45 16:00 16:15 Temperature Pulse Rate 89 99 89 Respiratory 23 20 19 Rate Blood Pressure 132/65 139/70 149/82 (mmHg) O2 Sat by Pulse 99 99 99 Oximetry 04/18/17 04/18/17 04/18/17 16:30 16:45 17:00 Temperature Pulse Rate 90 92 96 Respiratory 13 22 20 Rate Blood Pressure 151/84 155/93 165/87 (mmHg) O2 Sat by Pulse 96 92 92 Oximetry 04/18/17 04/18/17 04/18/17 17:15 17:30 17:45 Temperature Pulse Rate 95 95 91 Respiratory 25 22 21 Rate Blood Pressure 152/93 153/91 163/87 (mmHg) O2 Sat by Pulse 90 92 95 Oximetry 04/18/17 04/18/17 04/18/17 18:00 18:15 18:30 Temperature Pulse Rate 89 97 100 Respiratory 24 24 16 Rate Blood Pressure 166/88 147/78 160/85 (mmHg) O2 Sat by Pulse 96 90 95 Oximetry 04/18/17 04/18/17 04/18/17 18:45 19:00 19:15 Temperature Pulse Rate 94 105 103 Respiratory 27 17 7 Rate Blood Pressure 142/81 156/88 132/58 (mmHg) O2 Sat by Pulse 92 90 93 Oximetry 04/18/17 04/18/17 04/18/17 19:30 19:45 20:00 Temperature 98.8 F Pulse Rate 101 100 100 Respiratory 0 17 6 Rate Blood Pressure 127/60 133/70 133/59 (mmHg) O2 Sat by Pulse 91 91 93 Oximetry 04/18/17 04/18/17 04/18/17 20:15 20:30 20:45 Temperature Pulse Rate 97 98 96 Respiratory 23 9 18 Rate Blood Pressure 129/71 132/65 137/81 (mmHg) O2 Sat by Pulse 95 93 95 Oximetry 04/18/17 04/18/17 04/18/17 21:00 21:05 21:55 Temperature 98.9 F Pulse Rate 92 91 Respiratory 19 19 17 Rate Blood Pressure 137/76 131/61 (mmHg) O2 Sat by Pulse 96 94 Oximetry 04/18/17 04/18/17 04/18/17 22:04 22:33 23:30 Temperature 98.9 F 98.3 F Pulse Rate 91 96 Respiratory 17 17 16 Rate Blood Pressure 131/61 148/80 (mmHg) O2 Sat by Pulse 94 93 Oximetry 04/19/17 04/19/17 04/19/17 03:49 04:24 05:24 Temperature 98.7 F Pulse Rate 96 Respiratory 16 17 17 Rate Blood Pressure 160/76 (mmHg) O2 Sat by Pulse 94 Oximetry 04/19/17 04/19/17 04/19/17 07:39 08:00 08:10 Temperature 98.2 F Pulse Rate 103 Respiratory 18 18 18 Rate Blood Pressure 164/81 (mmHg) O2 Sat by Pulse 93 93 Oximetry 04/19/17 04/19/17 04/19/17 08:37 09:37 10:10 Temperature Pulse Rate Respiratory 18 18 18 Rate Blood Pressure (mmHg) O2 Sat by Pulse Oximetry 04/19/17 04/19/17 04/19/17 10:22 11:22 11:27 Temperature 98.5 F Pulse Rate 100 Respiratory 18 18 16 Rate Blood Pressure 143/77 (mmHg) O2 Sat by Pulse 90 Oximetry Oxygen Devices in Use Now: None Appearance: pt lying in bed in NAD Eyes: No Scleral Icterus Ears/Nose/Mouth/Throat: Mucous Membranes Moist Neck: Trachea Midline Respiratory: Symmetrical Chest Expansion and Respiratory Effort, Clear to Auscultation Cardiovascular: NL Sounds; No Murmurs; No JVD, No Edema Abdominal: NL Sounds; No Tenderness; No Distention Lymphatic: No Cervical Adenopathy Extremities: No Edema Skin: - - Right buttock with persistent induration and erythema, dressing CDI Neurological: Alert and Oriented x 3, NL Muscle Strength and Tone Nutrition: Taking PO's Result Diagrams: 04/18/17 04:35 04/18/17 10:00 Microbiology and Other Data: Microbiology 04/17/17 21:55 Nasal Screen MRSA (PCR)(ELADIO) - Final Nasal Mrsa Negative Assess/Plan/Problems-Billing Assessment: Ms. Whitehead is a 46 yo female with a PMH of DM, obesity, HTN who was admitted on 04/17/17 with right buttock abscess and marked hyperglycemia. - Patient Problems (1) Abscess Comment: - Now s/p I/D with Dr. Knutson. Continue daily packing changes. - WBC remains > 20 but improved, Tmax 100.6. CRP ~ 300. - Appreciate ID consult, now recommending ceftriaxone and flagyl, wound culture thus far with group B strep. (2) Diabetes Comment: - BG remains elevated. - Increase lantus and continue SSI coverage. Hold metformin and victoza. - HgbA1c 14. - Patient strongly encouraged and is very interested in follow up with [facility] and Bariatric Surgeon. (3) Hypertension Comment: - SBP 130-140s. - Continue home losartan. (4) DVT prophylaxis Comment: - Heparin SQ. (5) Full code status Status and Disposition: Inpatient with expected LOS > 2 days. Home when medically stable.
[2017-04-19] MEDS: Atorvastatin* 20 MG TAB PO SCH (16:50)
--- NOTE | 2017-04-19 17:24 | OP ---
DATE OF OPERATION: 04/18/17 - ROOM #340 DATE OF : 72 SURGEON: Virgil Mueller MD ANESTHESIOLOGIST: Dr. Wilson. ANESTHESIA: General. PRE-OP DIAGNOSIS: Right buttock abscess. POST-OP DIAGNOSIS: Right buttock abscess. OPERATIVE PROCEDURE: Incision and drainage of right buttock abscess. ESTIMATED BLOOD LOSS: Minimal. SPECIMENS: Pus for Gram stain and culture. DRAINS: Moist 4-inch Kerlix gauze. WOUND CLASSIFICATION: 4. COMPLICATIONS: None. BRIEF HISTORY: Ms. Gabriela Whitehead is a 46-year-old morbidly obese woman who has diabetes, who has developed what she describes a pimple in the right buttock cheek just medial and inferior to cleft about a week ago. This has increased in discomfort over the past several days causing nausea and vomiting, fever and poor oral intake. Her blood sugars have been elevated and she is not able to take her medicines. She presented to the emergency room and noted to be somewhat mildly septic with noted to have an elevated white blood cell count of 28,000 and some acute renal insufficiency. She was noted to have swelling, redness, and exquisite discomfort in the right buttock cheek just lateral to the tyrell cleft and anal area. She underwent a CT scan of the abdomen and pelvis, which was reviewed. This showed a fluid collection, subcutaneous tissue in the midline of the right buttock with some fluid and possible focus of gas consistent with an abscess. Surgical consultation was obtained and after reviewing her presentation, physical exam, and CT scan, plans are for urgent incision and drainage of a right buttock abscess causing sepsis. The procedure was discussed with the patient and the risks but not limited to bleeding, infection, further surgical intervention depending on clinical course , possibility of involvement of the sphincter muscles with extensive debridement depending on the extent of infection were explained. Recovery time , discomfort and the risks of anesthesia were discussed as well. DESCRIPTION OF PROCEDURE: Written informed consent was obtained. The right buttock was marked with indelible ink and antibiotics had already been administered. The patient was taken to the operating room. General anesthesia was administered and she was placed in the left lateral decubitus position with the right leg up over the left leg. The right buttocks and perineum were prepped and draped in the usual sterile fashion. Time-out verification was completed. Initially, a careful examination was performed. There appeared to be induration and redness parallel to the buttock crack from the tyrell cleft extending almost towards the anus. There was some fluctuance along this line and the skin was red and bluish colors in certain areas. There was no evidence of crepitans, however. There was also some induration on the left side in the lower portion of tyrell cleft as well, but no fluctuance or involvement of the left buttock in general. The labia were unremarkable. There was no abnormality in the perineum. There is no extension of infection or inflammation on either thigh. Next, using an 18-gauge needle, passed into the area of maximum induration, there was some foul smelling pus which was obtained. A vertical incision was made about 2.5 to 3 cm off the midline in the upper portion of the buttock and extended this to several centimeters in either direction and ended on large pus- filled cavity, which was foul smelling. Cultures were sent. There was some necrotic fat, which I debrided. I used an aggressive digital dissection to break up the loculation. It extended somewhat more posteriorly and inferiorly almost 8 to 10 cm as well as laterally and slightly inferior. There was also an extension across the midline in the upper portion of the tyrell cleft and this was opened up. The wound was irrigated. There was some necrotic fat in areas. It was once again debrided. The overlying fat, however, appeared to be viable without appearance of a necrotizing type of infection. The infection did not extend or appear to extend to the perianal area and it did not appear that this was a perianal or perirectal abscess. Digital rectal exam was performed, which showed no evidence of mass, blood, or other acute abnormality. Once the abscess was adequately drained, it was irrigated thoroughly. The wound was then packed with a 4-inch moist Kerlix gauze and covered with dry sterile ABD pads. Patient tolerated the procedure well and was taken to recovery room in stable condition. [id number]/[facility] #: [id number] SADE
[2017-04-19] MEDS: Insulin GLARGINE(*) 1 UNITS UNIT SUBCUT SCH (21:49)
[2017-04-19] MEDS ORDERED: Vancomycin(*) 1,000 MG in NS 0.9% 250 ML* 250 ML IVPB SCH (22:00)
[2017-04-20] MEDS: HYDROmorphone* 1 MG/ML 1 ML SYR IV SLOW PU PRN ×4 (01:25→17:27)
[2017-04-20] MEDS: NS 0.9% w/ 20 Meq KCL 1000 ML* 1,000 ML IV SCH ×2 (03:50→13:39)
[2017-04-20 05:11] LABS: Hematocrit 30 % (35-47); Hemoglobin 9.8 g/dl (12.0-16.0); Mean Corpuscular HGB Conc 33 g/dl (31-36); Mean Corpuscular Hemoglobin 31 pg (27-31); Mean Corpuscular Volume 95 fL (80-97); Mean Platelet Volume 9 um3 (7.4-10.4); Red Blood Count 3.18 10^6/ul (4.0-5.4); Red Cell Distribution Width 14 % (10.5-15); White Blood Count 20.2 10^3/ul (3.5-10.8)
[2017-04-20 05:12] LABS: Add Diff/Slide Review? Slide Review Added; Comments Flag Yes
[2017-04-20] MEDS: metroNIDAZOLE IV 500 MG/100ML* 500 MG/100 ML BAG IVPB SCH ×3 (05:32→23:01)
[2017-04-20] MEDS: Heparin VIAL(*) 5000 UNITS/ML VIAL (FIVE THOUSAND) SUBCUT SCH ×3 (05:34→23:01)
[2017-04-20] MEDS: Omeprazole CAP* 20 MG PO SCH (05:35)
--- NOTE | 2017-04-20 08:16 | PN ---
Subjective Date of Service: 04/20/17 Interval History: Patient seen and examined at bedside. Pt states that she is feeling well. Denies fever, shortness of breath, chest discomfort, N/V/D. Pt states that she had chills this morning and she had an IV infiltrate in her right forearm and her right hand is swollen. Pt is interested in going to [facility] at discharge and is requesting we assist her in making an appointment at discharge. Family History: Unchanged from Admission Social History: Unchanged from Admission Past Medical History: Unchanged from Admission Objective Active Medications: Acetaminophen (Tylenol Tab*) 650 mg PO Q4H PRN Reason: FEVER/PAIN Al Hydrox/Mg Hydrox/Simethicone (Maalox Plus*) 30 ml PO Q2H PRNN Reason: INDIGESTION Atorvastatin Calcium (Lipitor*) 20 mg PO 1700 JOSE Cyclobenzaprine HCl (Flexeril Tab*) 10 mg PO TID PRN Reason: PAIN Dextrose (D50w Syringe 50 Ml*) 12.5 gm IV PUSH .FOR FS < 60 - SS PRN Reason: FS < 60 Heparin Sodium (Porcine) (Heparin Vial(*)) 5,000 units SUBCUT Q8HR JOSE Hydromorphone HCl (Dilaudid Iv*) 1 mg IV SLOW PU Q4H PRN Reason: PAIN Potassium Chloride/Sodium Chloride (Ns 0.9% W/ 20 Meq Kcl 1000 Ml*) 1,000 mls @ 150 mls/hr IV PER RATE JOSE Metronidazole/Sodium Chloride (Flagyl 500 Mg Ivpb*) 500 mg in 100 mls @ 100 mls /hr IVPB Q8H JOSE Ceftriaxone Sodium 2 gm/ (Sodium Chloride) 100 mls @ 200 mls/hr IVPB Q24H JOSE Insulin Glargine (Lantus(*)) 45 units SUBCUT 2100 JOSE Insulin Glargine (Lantus(*)) 30 units SUBCUT 0900 JOSE Insulin Human Lispro (Humalog*) 0 units SUBCUT ACHS JOSE Losartan Potassium (Cozaar Tab*) 50 mg PO DAILY JOSE Omeprazole (Prilosec Cap*) 20 mg PO 0600 JOSE Ondansetron HCl (Zofran Inj*) 4 mg IV Q4H PRN Reason: NAUSEA Vital Signs 04/19/17 04/19/17 04/19/17 10:22 11:22 11:27 Temperature 98.5 F Pulse Rate 100 Respiratory 18 18 16 Rate Blood Pressure 143/77 (mmHg) O2 Sat by Pulse 90 Oximetry 04/19/17 04/19/17 04/19/17 15:14 16:00 16:50 Temperature 98.2 F Pulse Rate 94 Respiratory 24 18 Rate Blood Pressure 126/60 (mmHg) O2 Sat by Pulse 96 96 96 Oximetry 04/19/17 04/19/17 04/19/17 19:32 19:47 23:46 Temperature 98.0 F 98.0 F Pulse Rate 99 96 Respiratory 20 18 16 Rate Blood Pressure 127/68 119/63 (mmHg) O2 Sat by Pulse 94 95 Oximetry 04/20/17 04/20/17 04/20/17 01:25 02:25 03:36 Temperature 98.1 F Pulse Rate 95 Respiratory 16 18 17 Rate Blood Pressure 119/56 (mmHg) O2 Sat by Pulse 93 Oximetry Oxygen Devices in Use Now: None Appearance: NAD, laying in bed Eyes: No Scleral Icterus Ears/Nose/Mouth/Throat: Mucous Membranes Moist Respiratory: Symmetrical Chest Expansion and Respiratory Effort, Clear to Auscultation Cardiovascular: NL Sounds; No Murmurs; No JVD, RRR Abdominal: NL Sounds; No Tenderness; No Distention Neurological: Alert and Oriented x 3, NL Muscle Strength and Tone Lines/Tubes/Other Access: Clean, Dry and Intact Peripheral IV - site benign Nutrition: Taking PO's Result Diagrams: 04/20/17 04:48 04/18/17 10:00 Microbiology and Other Data: Microbiology 04/17/17 21:55 Nasal Screen MRSA (PCR)(ELADIO) - Final Nasal Mrsa Negative Assess/Plan/Problems-Billing Assessment: Ms. Whitehead is a 46 yo female with a PMH of DM, obesity, HTN who was admitted on 04/17/17 with right buttock abscess and marked hyperglycemia. - Patient Problems (1) Abscess Code(s): L02.91 - CUTANEOUS ABSCESS, UNSPECIFIED SNOMED Code(s): 638699744 Comment: - s/p I/D, POD #[address] Mueller. Continue daily packing changes. - WBC remains ~ 20 but improved. Tmax 100.6, afebrile ~ 48 hours. CRP ~ 300. - Meeting sepsis criteria on admission with SIRS criteria (tachycardia, fever, and leukocytosis), but not meeting qSofa criteria. Pt was nontoxic appearing at admission. - Pt no longer meeting SIRS criteria (only has leukocytosis at this time), and continues to be nontoxic appearing. - Appreciate ID consult, wound culture thus far with group B strep. - Continue ceftriaxone and flagyl. (2) Diabetes Code(s): E11.9 - TYPE 2 DIABETES MELLITUS WITHOUT COMPLICATIONS SNOMED Code(s) : 83544935 Comment: - BG remains elevated, but improving. - HgbA1c 14.7. - Patient strongly encouraged and is very interested in follow up with [facility] and Bariatric Surgeon. - Hold metformin and victoza. - Continue lantus and continue SSI coverage. (3) Hypertension Current Visit: Yes Status: Acute Code(s): I10 - ESSENTIAL (PRIMARY) HYPERTENSION SNOMED Code(s): 92083844 Comment: - SBP 110-140s. - Continue home losartan. (4) CKD (chronic kidney disease) stage 3, GFR 30-59 ml/min Code(s): N18.3 - CHRONIC KIDNEY DISEASE, STAGE 3 (MODERATE) SNOMED Code(s): 058648112 Comment: - Suspect this is Pt's baseline. No labs since 2015 (5) DVT prophylaxis Code(s): VTD6493 - SNOMED Code(s): 043664160 Comment: - Heparin SQ. (6) Full code status Code(s): Z78.9 - OTHER SPECIFIED HEALTH STATUS SNOMED Code(s): 641710847 Status and Disposition: Inpatient with expected LOS > 2 days. Home when medically stable.
[2017-04-20] MEDS ORDERED: oxyCODONE/Acetamin 5/325 MG* TAB PO PRN (08:31)
[2017-04-20] MEDS: Losartan TAB* 25 MG PO SCH (10:20)
[2017-04-20] MEDS: oxyCODONE/Acetamin 5/325 MG* TAB PO PRN ×2 (10:20→16:45)
[2017-04-20] MEDS: Insulin LISPRO* 1 UNITS UNIT SUBCUT SCH ×4 (10:20→20:50)
[2017-04-20] MEDS: Insulin GLARGINE(*) 1 UNITS UNIT SUBCUT SCH ×2 (10:21→20:51)
[2017-04-20] MEDS: Polyethylene Glycol 3350* 17 GM PACKET PO PRN (10:22)
--- NOTE | 2017-04-20 11:09 | PN ---
Progress Note - Progress Note Date of Service: 04/20/17 SOAP: Subjective: CC: abscess HPI: 46 yo woman with HHNK and right medial buttock abscess s/p I&D. Severe pain in buttock overnight, pain medicine helped, not as bad this morning. No fever, rash, or diarrhea. Appetite fair. Objective: Vital Signs Temp 36.7 C 04/20/17 07:43 Pulse 89 04/20/17 07:43 Resp 16 04/20/17 10:20 BP 147/71 04/20/17 07:43 Pulse Ox 95 04/20/17 07:43 Intake & Output 04/19/17 04/20/17 04/20/17 18:59 06:59 18:59 Intake Total 1835 2451 320 Output Total 0 400 Balance 1835 2051 320 Weight 292 lb Intake: IV Fluids 1639 NS (0.9%) 20 meq KCL 1639 IVPB 835 112 ABX - CEFEPIME 50 ABX - FLAGYL 112 ABX - VANCOMYCIN 285 NS (0.9%) 20 meq KCL 500 Oral 1000 700 320 Output: Urine 0 400 Other: Estimated Void Small # Bowel Movements 0 # Voids 1 Gen:awake, no distress HEENT:PERRL, MMM Neck:Supple Heart:RRR no murmur Lungs:CTA BL Abd:+BS NTND soft Skin: no rash MSK:R mediak buttock incision with surrounding induration and mild erythema Assessment: 1. R medial buttock abscess s/p I&D; Grp B Strep, likely polymicrobial 2. HHNK state; IDDM 3. morbid obesity 4. PCN allergy 5. CKD Plan: 1. continue ceftriaxone 2 gm and flagyl 500 mg IV Q8hrs. Discussed with Andrzej Lino NP
--- NOTE | 2017-04-20 13:23 | PN ---
Progress Note - Progress Note Date of Service: 04/20/17 SOAP: Subjective: Doing better today. Buttock pain last night, relived with meds. Ambulatory, tolerating diabetic diet. Denies fever or chills. Objective: Awake and alert, in NAD VSS, afebrile Right buttock with a large area of induration and erythema surrounding I&D site. Packing already changed by nursing staff earlier today. Mild tenderness, no discharge or bleeding noted. Ext. without edema Labs noted, WBC decreased to 20,000 Assessment: POD#2, s/p I&D of large right felicita-rectal abscess. Plan: Clinically stable, appears to improve slowly Still significant amount of induration to the right buttock, continue IV Abx Will discuss with Dr. Mueller
[2017-04-20] MEDS: Atorvastatin* 20 MG TAB PO SCH (16:45)
[2017-04-21] MEDS: oxyCODONE/Acetamin 5/325 MG* TAB PO PRN ×6 (00:07→23:19)
[2017-04-21] MEDS: NS 0.9% w/ 20 Meq KCL 1000 ML* 1,000 ML IV SCH ×4 (00:13→23:20)
[2017-04-21] MEDS: Omeprazole CAP* 20 MG PO SCH (05:10)
[2017-04-21] MEDS: Heparin VIAL(*) 5000 UNITS/ML VIAL (FIVE THOUSAND) SUBCUT SCH ×3 (05:11→21:30)
[2017-04-21] MEDS: metroNIDAZOLE IV 500 MG/100ML* 500 MG/100 ML BAG IVPB SCH ×3 (05:15→21:30)
[2017-04-21 05:29] LABS: BUN/Creatinine Ratio 18.1 (8-20); Calcium 7.5 mg/dL (8.6-10.3); EGFR African American 53.2 (>60); EGFR Non-African American 41.3 (>60); Potassium 4.8 mmol/L (3.5-5.0)
--- NOTE | 2017-04-21 07:43 | PN ---
Progress Note - Progress Note Date of Service: 04/20/17 SOAP: Subjective: This is an out of sequence note-patient seen on 04/20/17 at 1715 She continues to feel better-ambulating to the bathroom. Her appetite is good and her pain is decreased today. Objective: Afebrile Right buttock wound remains open and packed. Packing was removed-exposed subcutaneous fat is pink and viable, there were several areas of necrotic tissue along the edges of the wound that were debrided sharply. No significant odor or undrained pus noted. Cavity was probed digitally and repacked with moist 4 inch kerlex. There remains induration and edema anteriorly towards the labia. Edema laterally on the buttock cheek is improved. Assessment: Right buttock abscess s/p I and D Cultures noted She remains afebrile and WBC decreasing, has less pain Plan: Continue IV antibiotics Wound care.
[2017-04-21] MEDS: Insulin LISPRO* 1 UNITS UNIT SUBCUT SCH ×4 (07:58→21:19)
[2017-04-21] MEDS: Insulin GLARGINE(*) 1 UNITS UNIT SUBCUT SCH ×2 (09:00→21:30)
[2017-04-21] MEDS: Losartan TAB* 25 MG PO SCH (09:01)
[2017-04-21] MEDS: Polyethylene Glycol 3350* 17 GM PACKET PO PRN (09:02)
[2017-04-21] MEDS ORDERED: Vancomycin Trough Check NOTE FOLLOW UP ONE (10:00)
--- NOTE | 2017-04-21 10:46 | PN ---
Subjective Date of Service: 04/21/17 Interval History: Patient seen and examined at bedside. Pt states that she didn't sleep well last night. Denies fever, chills, shortness of breath, chest discomfort, N/V/D. Pt states that she has a "burning" pain in her right buttock. Pt states that her appetite is returning and she is passing flatus, no BM yet. Family History: Unchanged from Admission Social History: Unchanged from Admission Past Medical History: Unchanged from Admission Objective Active Medications: Acetaminophen (Tylenol Tab*) 650 mg PO Q4H PRN Reason: FEVER/PAIN Al Hydrox/Mg Hydrox/Simethicone (Maalox Plus*) 30 ml PO Q2H PRN Reason: INDIGESTION Atorvastatin Calcium (Lipitor*) 20 mg PO 1700 JOSE Cyclobenzaprine HCl (Flexeril Tab*) 10 mg PO TID PRN Reason: PAIN Dextrose (D50w Syringe 50 Ml*) 12.5 gm IV PUSH .FOR FS < 60 - SS PRN Reason: FS < 60 Heparin Sodium (Porcine) (Heparin Vial(*)) 5,000 units SUBCUT Q8HR JOSE Hydromorphone HCl (Dilaudid Iv*) 1 mg IV SLOW PU Q4H PRN Reason: PAIN - BREAKTHROUGH Potassium Chloride/Sodium Chloride (Ns 0.9% W/ 20 Meq Kcl 1000 Ml*) 1,000 mls @ 150 mls/hr IV PER RATE JOSE Metronidazole/Sodium Chloride (Flagyl 500 Mg Ivpb*) 500 mg in 100 mls @ 100 mls /hr IVPB Q8H JOSE Ceftriaxone Sodium 2 gm/ (Sodium Chloride) 100 mls @ 200 mls/hr IVPB Q24H JOSE Insulin Glargine (Lantus(*)) 45 units SUBCUT 2100 JOSE Insulin Glargine (Lantus(*)) 30 units SUBCUT 0900 JOSE Insulin Human Lispro (Humalog*) 0 units SUBCUT ACHS JOSE Losartan Potassium (Cozaar Tab*) 50 mg PO DAILY JOSE Magnesium Hydroxide (Milk Of Magnesia Liq*) 30 ml PO Q6H PRN Reason: CONSTIPATION Omeprazole (Prilosec Cap*) 20 mg PO 0600 JOSE Ondansetron HCl (Zofran Inj*) 4 mg IV Q4H PRN Reason: NAUSEA Oxycodone/Acetaminophen (Percocet 5/325 Tab*) 1 tab PO Q4H PRN Reason: PAIN - MILD TO MODERATE Oxycodone/Acetaminophen (Percocet 5/325 Tab*) 2 tab PO Q4H PRN Reason: PAIN - MODERATE TO SEVERE Polyethylene Glycol/Electrolytes (Miralax*) 17 gm PO DAILY PRN Reason: CONSTIPATION Vital Signs 04/20/17 04/20/17 04/20/17 11:48 11:57 12:20 Temperature 98.3 F Pulse Rate 102 Respiratory 16 16 18 Rate Blood Pressure 133/61 (mmHg) O2 Sat by Pulse 97 Oximetry 04/20/17 04/20/17 04/20/17 12:57 15:36 16:45 Temperature 98.7 F Pulse Rate 96 Respiratory 18 18 18 Rate Blood Pressure 114/69 (mmHg) O2 Sat by Pulse 93 Oximetry 04/20/17 04/20/17 04/20/17 19:57 21:00 23:31 Temperature 98.3 F 98.4 F Pulse Rate 103 103 Respiratory 16 16 20 Rate Blood Pressure 132/77 122/60 (mmHg) O2 Sat by Pulse 95 94 Oximetry 04/21/17 04/21/17 04/21/17 00:07 02:07 03:25 Temperature 98.1 F Pulse Rate 102 Respiratory 20 20 16 Rate Blood Pressure 150/80 (mmHg) O2 Sat by Pulse 92 Oximetry 04/21/17 04/21/17 07:48 08:58 Temperature 98.5 F Pulse Rate 96 Respiratory 16 18 Rate Blood Pressure 152/83 (mmHg) O2 Sat by Pulse 97 Oximetry Oxygen Devices in Use Now: None Appearance: NAD, laying in bed Ears/Nose/Mouth/Throat: Mucous Membranes Moist Respiratory: Symmetrical Chest Expansion and Respiratory Effort, Clear to Auscultation Cardiovascular: NL Sounds; No Murmurs; No JVD, RRR Abdominal: NL Sounds; No Tenderness; No Distention Extremities: No Edema Neurological: Alert and Oriented x 3, NL Muscle Strength and Tone Lines/Tubes/Other Access: Clean, Dry and Intact Peripheral IV - site benign Nutrition: Taking PO's Result Diagrams: 04/20/17 04:48 04/21/17 05:00 Microbiology and Other Data: Microbiology 04/17/17 21:55 Nasal Screen MRSA (PCR)(ELADIO) - Final Nasal Mrsa Negative Assess/Plan/Problems-Billing Assessment: Ms. Whitehead is a 46 yo female with a PMH of DM, obesity, HTN who was admitted on 04/17/17 with right buttock abscess and marked hyperglycemia. - Patient Problems (1) Abscess Code(s): L02.91 - CUTANEOUS ABSCESS, UNSPECIFIED SNOMED Code(s): 189614129 Comment: - s/p I/D, POD #[address] Mueller. / s/p bedside debridement. Continue daily packing changes. - WBC remains ~ 20 but improved. Tmax 100.6, afebrile ~ 48 hours. CRP ~ 300. - Meeting sepsis criteria on admission with SIRS criteria (tachycardia, fever, and leukocytosis), but not meeting qSofa criteria. Pt was nontoxic appearing at admission. - Pt no longer meeting SIRS criteria (only has leukocytosis at this time), and continues to be nontoxic appearing. - Appreciate ID consult, wound culture thus far with group B strep. - Continue ceftriaxone and flagyl. (2) Diabetes Code(s): E11.9 - TYPE 2 DIABETES MELLITUS WITHOUT COMPLICATIONS SNOMED Code(s) : 04903369 Comment: - BG improving. - HgbA1c 14.7. - Patient strongly encouraged and is very interested in follow up with [facility] and Bariatric Surgeon. - Hold metformin and victoza. - Continue lantus and continue SSI coverage. (3) Hypertension Current Visit: Yes Status: Acute Code(s): I10 - ESSENTIAL (PRIMARY) HYPERTENSION SNOMED Code(s): 73182929 Comment: - SBP 110-150s. - Continue home losartan. (4) CKD (chronic kidney disease) stage 3, GFR 30-59 ml/min Code(s): N18.3 - CHRONIC KIDNEY DISEASE, STAGE 3 (MODERATE) SNOMED Code(s): 769057721 Comment: - Suspect this is Pt's baseline. No labs since 2015 (5) DVT prophylaxis Code(s): UGB2347 - SNOMED Code(s): 585438711 Comment: - Heparin SQ. (6) Full code status Code(s): Z78.9 - OTHER SPECIFIED HEALTH STATUS SNOMED Code(s): 121501689 Status and Disposition: Inpatient with expected LOS > 2 days. Home when medically stable.
[2017-04-21] MEDS: Atorvastatin* 20 MG TAB PO SCH (16:39)
[2017-04-21 19:09] LABS: Hematocrit 31 % (35-47); Hemoglobin 9.8 g/dl (12.0-16.0); Mean Corpuscular HGB Conc 32 g/dl (31-36); Mean Corpuscular Hemoglobin 31 pg (27-31); Mean Corpuscular Volume 96 fL (80-97); Mean Platelet Volume 9 um3 (7.4-10.4); Red Blood Count 3.23 10^6/ul (4.0-5.4); Red Cell Distribution Width 14 % (10.5-15); White Blood Count 20.9 10^3/ul (3.5-10.8)
[2017-04-21 19:11] LABS: Comments Flag Yes
[2017-04-21] MEDS: Magnesium Hydroxide LIQ* 30 ML UDC PO PRN (21:29)
[2017-04-22] MEDS: oxyCODONE/Acetamin 5/325 MG* TAB PO PRN ×4 (04:16→19:50)
[2017-04-22] MEDS ORDERED: metroNIDAZOLE TAB* 250 MG PO ONE (05:23)
[2017-04-22] MEDS: metroNIDAZOLE IV 500 MG/100ML* 500 MG/100 ML BAG IVPB SCH ×3 (05:24→21:59)
[2017-04-22] MEDS: Heparin VIAL(*) 5000 UNITS/ML VIAL (FIVE THOUSAND) SUBCUT SCH ×3 (05:34→21:58)
[2017-04-22] MEDS: Omeprazole CAP* 20 MG PO SCH (05:35)
[2017-04-22] MEDS: Insulin LISPRO* 1 UNITS UNIT SUBCUT SCH ×4 (09:14→21:06)
[2017-04-22] MEDS: HYDROmorphone* 1 MG/ML 1 ML SYR IV SLOW PU PRN ×2 (10:02→21:16)
--- NOTE | 2017-04-22 10:03 | PN ---
Progress Note - Progress Note Date of Service: 04/22/17 SOAP: Subjective: She continues to feel better-less pain She is passing flatus and urinating well, no BM Tolerating regular diet Objective: AFebrile for 24 hours Temp Pulse Resp BP Pulse Ox 98.1 F 95 18 147/71 96 04/22/17 07:18 04/22/17 07:18 04/22/17 09:11 04/22/17 07:18 04/22/17 07:18 Intake & Output 04/20/17 04/21/17 04/22/17 04/23/17 06:59 06:59 06:59 06:59 Intake Total 4286 3803 2945 200 Output Total 400 1500 1150 Balance 3886 2303 1795 200 Weight 292 lb Intake: IV Fluids 9205 437 2054 ABX - FLAGYL 115 955 NS (0.9%) 20 meq KCL 1639 784 274 IVPB 947 1894 196 ABX - CEFEPIME 50 ABX - FLAGYL 112 222 ABX - VANCOMYCIN 285 Antibitoics 196 NS (0.9%) 20 meq KCL 500 1672 Oral 1700 1010 1520 200 Output: Urine 400 1500 1150 Other: Estimated Void Small Large # Bowel Movements 0 0 0 # Voids 1 1 PEX: Comfortable Right buttock with some persistent edema lateral to the open abscess drainage site Abscess cavity with some seropourulent drainage-no odor. I appreciate no evidence of undrained pus and the subcutaneous fat is viable. Some necrotic skin edges and superficial fat necrosis debrided sharply. Any loculations broken up digitally. Wound repacked with saline moistened 4 inch Kerlex Cultures noted Assessment: Right buttock abscess-improving clinically, WBC remains elevated yesterday. She remains afebrile, I appreciate no undrained abscess or progression of infection. Plan: Will start changing packing BID Continue IV abx Follow clinically-if no improvement in WBC or noted change in abscess site, will obtain repeat CT She is not ready for discharge.
[2017-04-22] MEDS: Insulin GLARGINE(*) 1 UNITS UNIT SUBCUT SCH (10:06)
[2017-04-22] MEDS: Losartan TAB* 25 MG PO SCH (10:07)
--- NOTE | 2017-04-22 14:10 | PN ---
Subjective Date of Service: 04/22/17 Interval History: Patient seen and examined at bedside. Denies fever, chills, shortness of breath , chest discomfort, N/V/D. Pt states that the wound is painful during dressing changes. She feels that overall the swelling is improving in her right buttock. Family History: Unchanged from Admission Social History: Unchanged from Admission Past Medical History: Unchanged from Admission Objective Active Medications: Acetaminophen (Tylenol Tab*) 650 mg PO Q4H PRN Reason: FEVER/PAIN Al Hydrox/Mg Hydrox/Simethicone (Maalox Plus*) 30 ml PO Q2H PRN Reason: INDIGESTION Atorvastatin Calcium (Lipitor*) 20 mg PO 1700 JOSE Cyclobenzaprine HCl (Flexeril Tab*) 10 mg PO TID PRN Reason: PAIN Dextrose (D50w Syringe 50 Ml*) 12.5 gm IV PUSH .FOR FS < 60 - SS PRN Reason: FS < 60 Heparin Sodium (Porcine) (Heparin Vial(*)) 5,000 units SUBCUT Q8HR JOSE Hydromorphone HCl (Dilaudid Iv*) 1 mg IV SLOW PU Q4H PRN Reason: PAIN - BREAKTHROUGH Metronidazole/Sodium Chloride (Flagyl 500 Mg Ivpb*) 500 mg in 100 mls @ 100 mls /hr IVPB Q8H JOSE Ceftriaxone Sodium 2 gm/ (Sodium Chloride) 100 mls @ 200 mls/hr IVPB Q24H JOSE Insulin Glargine (Lantus(*)) 45 units SUBCUT 2100 JOSE Insulin Glargine (Lantus(*)) 30 units SUBCUT 0900 JOSE Insulin Human Lispro (Humalog*) 0 units SUBCUT ACHS JOSE Losartan Potassium (Cozaar Tab*) 50 mg PO DAILY JOSE Magnesium Hydroxide (Milk Of Magnesia Liq*) 30 ml PO Q6H PRN Reason: CONSTIPATION Omeprazole (Prilosec Cap*) 20 mg PO 0600 JOSE Ondansetron HCl (Zofran Inj*) 4 mg IV Q4H PRN Reason: NAUSEA Oxycodone/Acetaminophen (Percocet 5/325 Tab*) 1 tab PO Q4H PRN Reason: PAIN - MILD TO MODERATE Oxycodone/Acetaminophen (Percocet 5/325 Tab*) 2 tab PO Q4H PRN Reason: PAIN - MODERATE TO SEVERE Polyethylene Glycol/Electrolytes (Miralax*) 17 gm PO DAILY PRN Reason: CONSTIPATION Vital Signs 04/21/17 04/21/17 04/21/17 14:48 15:02 15:42 Temperature 98.5 F Pulse Rate 102 Respiratory 18 18 16 Rate Blood Pressure 149/61 (mmHg) O2 Sat by Pulse 96 Oximetry 04/21/17 04/21/17 04/21/17 17:38 19:38 21:36 Temperature 98.9 F Pulse Rate 99 Respiratory 18 18 18 Rate Blood Pressure 154/70 (mmHg) O2 Sat by Pulse 95 Oximetry 04/21/17 04/21/17 04/22/17 23:19 23:38 01:19 Temperature 97.7 F Pulse Rate 99 Respiratory 20 16 16 Rate Blood Pressure 145/63 (mmHg) O2 Sat by Pulse 92 Oximetry 04/22/17 04/22/17 04/22/17 03:41 04:16 06:16 Temperature 98.5 F Pulse Rate 93 Respiratory 17 20 18 Rate Blood Pressure 142/64 (mmHg) O2 Sat by Pulse 96 Oximetry 04/22/17 04/22/17 04/22/17 07:18 08:08 09:11 Temperature 98.1 F Pulse Rate 95 Respiratory 21 18 18 Rate Blood Pressure 147/71 (mmHg) O2 Sat by Pulse 96 Oximetry Oxygen Devices in Use Now: None Appearance: NAD, laying in bed Ears/Nose/Mouth/Throat: Mucous Membranes Moist Respiratory: Symmetrical Chest Expansion and Respiratory Effort, Clear to Auscultation Cardiovascular: NL Sounds; No Murmurs; No JVD, RRR Abdominal: NL Sounds; No Tenderness; No Distention Extremities: No Edema Skin: - - Dressing to right buttock with seropurulant drainage, right buttock with erythema and swelling. Neurological: Alert and Oriented x 3, NL Muscle Strength and Tone Lines/Tubes/Other Access: Clean, Dry and Intact Peripheral IV - site benign Nutrition: Taking PO's Result Diagrams: 04/21/17 19:04 04/21/17 05:00 Microbiology and Other Data: Microbiology 04/17/17 21:55 Nasal Screen MRSA (PCR)(ELADIO) - Final Nasal Mrsa Negative Assess/Plan/Problems-Billing Assessment: Ms. Whitehead is a 46 yo female with a PMH of DM, obesity, HTN who was admitted on 04/17/17 with right buttock abscess and marked hyperglycemia. - Patient Problems (1) Abscess Code(s): L02.91 - CUTANEOUS ABSCESS, UNSPECIFIED SNOMED Code(s): 326824656 Comment: - Right buttock. - s/p I/D, POD #[address] Mueller. - s/p bedside debridement on 04/20 & 04/22. - WBC remains ~ 20 but improved. Tmax 100.6, afebrile ~ 72 hours. CRP ~ 300. - Meeting sepsis criteria on admission with SIRS criteria (tachycardia, fever, and leukocytosis), but not meeting qSofa criteria. Pt was nontoxic appearing at admission. Normal lactic acid on admission. - Pt no longer meeting SIRS criteria (only has leukocytosis at this time), and continues to be nontoxic appearing. - Appreciate ID consult, wound culture thus far with group B strep. - Change to BID packing changes. - Continue ceftriaxone and flagyl. (2) Diabetes Code(s): E11.9 - TYPE 2 DIABETES MELLITUS WITHOUT COMPLICATIONS SNOMED Code(s) : 29132174 Comment: - Glucose 70-120's. - HgbA1c 14.7. - Patient strongly encouraged and is very interested in follow up with [facility] and Bariatric Surgeon. - Hold metformin and victoza. - Continue lantus and continue SSI coverage. (3) Hypertension Current Visit: Yes Status: Acute Code(s): I10 - ESSENTIAL (PRIMARY) HYPERTENSION SNOMED Code(s): 27058457 Comment: - SBP 140-150s. - Continue home losartan. (4) CKD (chronic kidney disease) stage 3, GFR 30-59 ml/min Code(s): N18.3 - CHRONIC KIDNEY DISEASE, STAGE 3 (MODERATE) SNOMED Code(s): 813154231 Comment: - Suspect this is Pt's baseline. No labs since 2015 (5) DVT prophylaxis Code(s): RXP4207 - SNOMED Code(s): 658768489 Comment: - Heparin SQ. (6) Full code status Code(s): Z78.9 - OTHER SPECIFIED HEALTH STATUS SNOMED Code(s): 620261466 Status and Disposition: Inpatient. Home when medically stable.
[2017-04-22] MEDS: Polyethylene Glycol 3350* 17 GM PACKET PO PRN (14:56)
[2017-04-22] MEDS: Atorvastatin* 20 MG TAB PO SCH (17:21)
[2017-04-22] MEDS ORDERED: Insulin GLARGINE(*) 1 UNITS UNIT SUBCUT SCH (21:00)
[2017-04-23] MEDS: oxyCODONE/Acetamin 5/325 MG* TAB PO PRN ×4 (03:02→18:09)
[2017-04-23] MEDS: metroNIDAZOLE IV 500 MG/100ML* 500 MG/100 ML BAG IVPB SCH ×3 (06:13→21:32)
[2017-04-23] MEDS: Omeprazole CAP* 20 MG PO SCH (06:13)
[2017-04-23] MEDS: Heparin VIAL(*) 5000 UNITS/ML VIAL (FIVE THOUSAND) SUBCUT SCH ×3 (06:16→21:31)
[2017-04-23 07:02] LABS: Add Diff/Slide Review? Slide Review Added; Comments Flag Yes; Hematocrit 31 % (35-47); Hemoglobin 10.2 g/dl (12.0-16.0); Mean Corpuscular HGB Conc 32 g/dl (31-36); Mean Corpuscular Hemoglobin 31 pg (27-31); Mean Corpuscular Volume 95 fL (80-97); Mean Platelet Volume 9 um3 (7.4-10.4); Red Blood Count 3.29 10^6/ul (4.0-5.4); Red Cell Distribution Width 14 % (10.5-15); White Blood Count 18.8 10^3/ul (3.5-10.8)
[2017-04-23 07:20] LABS: BUN/Creatinine Ratio 13.7 (8-20); Calcium 7.9 mg/dL (8.6-10.3); EGFR African American 64.3 (>60); Potassium 4.2 mmol/L (3.5-5.0)
[2017-04-23] MEDS: Insulin LISPRO* 1 UNITS UNIT SUBCUT SCH ×4 (07:45→21:15)
--- NOTE | 2017-04-23 08:06 | PN ---
Subjective Date of Service: 04/23/17 Interval History: Patient seen and examined at bedside. Pt states that she is feeling well but has increased pain since her packing change earlier this morning. Denies fever, chills, shortness of breath, chest discomfort, N/V/D. Pt continues to feel that the swelling in her right buttock is decreasing. Family History: Unchanged from Admission Social History: Unchanged from Admission Past Medical History: Unchanged from Admission Objective Active Medications: Acetaminophen (Tylenol Tab*) 650 mg PO Q4H PRN Reason: FEVER/PAIN Al Hydrox/Mg Hydrox/Simethicone (Maalox Plus*) 30 ml PO Q2H PRN Reason: INDIGESTION Atorvastatin Calcium (Lipitor*) 20 mg PO 1700 JOSE Cyclobenzaprine HCl (Flexeril Tab*) 10 mg PO TID PRN Reason: PAIN Dextrose (D50w Syringe 50 Ml*) 12.5 gm IV PUSH .FOR FS < 60 - SS PRN Reason: FS < 60 Heparin Sodium (Porcine) (Heparin Vial(*)) 5,000 units SUBCUT Q8HR JOSE Hydromorphone HCl (Dilaudid Iv*) 1 mg IV SLOW PU Q4H PRN Reason: PAIN - BREAKTHROUGH Metronidazole/Sodium Chloride (Flagyl 500 Mg Ivpb*) 500 mg in 100 mls @ 100 mls /hr IVPB Q8H JOSE Ceftriaxone Sodium 2 gm/ (Sodium Chloride) 100 mls @ 200 mls/hr IVPB Q24H JOSE Insulin Glargine (Lantus(*)) 25 units SUBCUT 0900 JOSE Insulin Glargine (Lantus(*)) 30 units SUBCUT 2100 JOSE Insulin Human Lispro (Humalog*) 0 units SUBCUT ACHS JOSE Magnesium Hydroxide (Milk Of Magnesia Liq*) 30 ml PO Q6H PRN Reason: CONSTIPATION Omeprazole (Prilosec Cap*) 20 mg PO 0600 JOSE Ondansetron HCl (Zofran Inj*) 4 mg IV Q4H PRN Reason: NAUSEA Oxycodone/Acetaminophen (Percocet 5/325 Tab*) 1 tab PO Q4H PRN Reason: PAIN - MILD TO MODERATE Oxycodone/Acetaminophen (Percocet 5/325 Tab*) 2 tab PO Q4H PRN Reason: PAIN - MODERATE TO SEVERE Polyethylene Glycol/Electrolytes (Miralax*) 17 gm PO DAILY PRN Reason: CONSTIPATION Vital Signs 04/22/17 04/22/17 04/22/17 11:02 11:11 11:22 Temperature 97.7 F Pulse Rate 100 Respiratory 18 18 18 Rate Blood Pressure 155/71 (mmHg) O2 Sat by Pulse 95 Oximetry 04/22/17 04/22/17 04/22/17 15:15 15:42 15:50 Temperature 98.6 F 97.8 F Pulse Rate 102 101 Respiratory 16 18 18 Rate Blood Pressure 151/82 136/72 (mmHg) O2 Sat by Pulse 97 97 Oximetry 04/22/17 04/22/17 04/22/17 17:50 19:33 19:50 Temperature 98.3 F Pulse Rate 102 Respiratory 18 17 18 Rate Blood Pressure 131/67 (mmHg) O2 Sat by Pulse 97 Oximetry 04/22/17 04/22/17 04/23/17 22:16 23:52 03:02 Temperature 98.3 F Pulse Rate 102 Respiratory 20 18 18 Rate Blood Pressure 167/78 (mmHg) O2 Sat by Pulse 97 Oximetry 04/23/17 04/23/17 04/23/17 03:46 05:02 07:21 Temperature 97.9 F 97.9 F Pulse Rate 95 102 Respiratory 18 18 20 Rate Blood Pressure 147/80 173/69 (mmHg) O2 Sat by Pulse 95 97 Oximetry Oxygen Devices in Use Now: None Appearance: NAD, laying in bed Ears/Nose/Mouth/Throat: Mucous Membranes Moist Respiratory: Symmetrical Chest Expansion and Respiratory Effort, Clear to Auscultation Cardiovascular: NL Sounds; No Murmurs; No JVD, RRR Abdominal: NL Sounds; No Tenderness; No Distention Extremities: No Edema Skin: - - Erythema and swelling to right buttock with dressing intact Neurological: Alert and Oriented x 3, NL Muscle Strength and Tone Lines/Tubes/Other Access: Clean, Dry and Intact Peripheral IV - site benign Nutrition: Taking PO's Result Diagrams: 04/23/17 06:27 04/23/17 06:27 Microbiology and Other Data: Microbiology 04/17/17 21:55 Nasal Screen MRSA (PCR)(ELADIO) - Final Nasal Mrsa Negative Assess/Plan/Problems-Billing Assessment: Ms. Whitehead is a 46 yo female with a PMH of DM, obesity, HTN who was admitted on 04/17/17 with right buttock abscess and marked hyperglycemia. - Patient Problems (1) Abscess Code(s): L02.91 - CUTANEOUS ABSCESS, UNSPECIFIED SNOMED Code(s): 734108372 Comment: - Right buttock. - s/p I/D, POD #[address] Mueller. - s/p bedside debridement on 04/20 & 04/22. - WBC remains ~ 18 but improved. Tmax 100.6, afebrile > ~ 72 hours. CRP ~ 300. - Meeting sepsis criteria on admission with SIRS criteria (tachycardia, fever, and leukocytosis), but not meeting qSofa criteria. Pt was nontoxic appearing at admission. Normal lactic acid on admission. - Pt no longer meeting SIRS criteria (only has leukocytosis at this time), and continues to be nontoxic appearing. - Appreciate ID consult, wound culture thus far with group B strep. - Continue to BID packing changes. - Continue ceftriaxone and flagyl. (2) Diabetes Code(s): E11.9 - TYPE 2 DIABETES MELLITUS WITHOUT COMPLICATIONS SNOMED Code(s) : 54561559 Comment: - Glucose 70-120's. - HgbA1c 14.7. - Patient strongly encouraged and is very interested in follow up with [facility] and Bariatric Surgeon. - Hold metformin and victoza. - Continue lantus (decreased today) and continue SSI coverage. (3) Hypertension Current Visit: Yes Status: Acute Code(s): I10 - ESSENTIAL (PRIMARY) HYPERTENSION SNOMED Code(s): 69098378 Comment: - Hypertensive, SBP 140-170s. - Continue home losartan (increase dose today). (4) CKD (chronic kidney disease) stage 3, GFR 30-59 ml/min Code(s): N18.3 - CHRONIC KIDNEY DISEASE, STAGE 3 (MODERATE) SNOMED Code(s): 182295170 Comment: - Suspect this is Pt's baseline. No labs since 2015 (5) DVT prophylaxis Code(s): [id number] - SNOMED Code(s): 465587957 Comment: - Heparin SQ. (6) Full code status Code(s): Z78.9 - OTHER SPECIFIED HEALTH STATUS SNOMED Code(s): 069770956 Status and Disposition: Inpatient. Home when medically stable.
[2017-04-23 08:11] LABS: Eosinophils % 3 % (0-6); Immature Granulocytes 8 % (0-9); Neutrophil % 67 % (38-83)
[2017-04-23 08:12] LABS: Hypochromasia 1+; Polychromasia 1+
[2017-04-23] MEDS ORDERED: Insulin GLARGINE(*) 1 UNITS UNIT SUBCUT SCH ×3 (09:00→21:00)
[2017-04-23] MEDS: Losartan TAB* 25 MG PO SCH (09:37)
[2017-04-23] MEDS: Atorvastatin* 20 MG TAB PO SCH (16:42)
[2017-04-23] MEDS: Polyethylene Glycol 3350* 17 GM PACKET PO PRN (18:25)
[2017-04-23] MEDS: HYDROmorphone* 1 MG/ML 1 ML SYR IV SLOW PU PRN (19:36)
[2017-04-23] MEDS: Magnesium Hydroxide LIQ* 30 ML UDC PO PRN (21:37)
[2017-04-24] MEDS: oxyCODONE/Acetamin 5/325 MG* TAB PO PRN ×3 (03:54→19:27)
[2017-04-24] MEDS: Omeprazole CAP* 20 MG PO SCH (05:57)
[2017-04-24] MEDS: metroNIDAZOLE IV 500 MG/100ML* 500 MG/100 ML BAG IVPB SCH ×3 (05:57→21:56)
[2017-04-24] MEDS: Heparin VIAL(*) 5000 UNITS/ML VIAL (FIVE THOUSAND) SUBCUT SCH ×3 (06:00→21:26)
[2017-04-24] MEDS: Insulin LISPRO* 1 UNITS UNIT SUBCUT SCH ×4 (07:54→21:27)
[2017-04-24] MEDS: Losartan TAB* 25 MG PO SCH (09:32)
[2017-04-24] MEDS: HYDROmorphone* 1 MG/ML 1 ML SYR IV SLOW PU PRN ×2 (10:02→21:26)
--- NOTE | 2017-04-24 15:27 | PN ---
Subjective Date of Service: 04/24/17 Interval History: Patient seen and examined at bedside. Pt states that she is feeling well, she reports that the pain and swelling in her right buttock is improving. Denies fever, chills, shortness of breath, chest discomfort, N/V/D. Family History: Unchanged from Admission Social History: Unchanged from Admission Past Medical History: Unchanged from Admission Objective Active Medications: Acetaminophen (Tylenol Tab*) 650 mg PO Q4H PRN Reason: FEVER/PAIN Al Hydrox/Mg Hydrox/Simethicone (Maalox Plus*) 30 ml PO Q2H PRN Reason: INDIGESTION Atorvastatin Calcium (Lipitor*) 20 mg PO 1700 JOSE Cyclobenzaprine HCl (Flexeril Tab*) 10 mg PO TID PRN Reason: PAIN Dextrose (D50w Syringe 50 Ml*) 12.5 gm IV PUSH .FOR FS < 60 - SS PRN Reason: FS < 60 Heparin Sodium (Porcine) (Heparin Vial(*)) 5,000 units SUBCUT Q8HR JOSE Hydromorphone HCl (Dilaudid Iv*) 1 mg IV SLOW PU Q4H PRN Reason: PAIN - BREAKTHROUGH Metronidazole/Sodium Chloride (Flagyl 500 Mg Ivpb*) 500 mg in 100 mls @ 100 mls /hr IVPB Q8H JOSE Ceftriaxone Sodium 2 gm/ (Sodium Chloride) 100 mls @ 200 mls/hr IVPB Q24H JOSE Insulin Glargine (Lantus(*)) 25 units SUBCUT 2100 JOSE Insulin Glargine (Lantus(*)) 20 units SUBCUT 0900 JOSE Insulin Human Lispro (Humalog*) 0 units SUBCUT ACHS JOSE Reason: Protocol Losartan Potassium (Cozaar Tab*) 75 mg PO DAILY JOSE Magnesium Hydroxide (Milk Of Magnesia Liq*) 30 ml PO Q6H PRN Reason: CONSTIPATION Omeprazole (Prilosec Cap*) 20 mg PO 0600 JOSE Ondansetron HCl (Zofran Inj*) 4 mg IV Q4H PRN Reason: NAUSEA Oxycodone/Acetaminophen (Percocet 5/325 Tab*) 1 tab PO Q4H PRN Reason: PAIN - MILD TO MODERATE Oxycodone/Acetaminophen (Percocet 5/325 Tab*) 2 tab PO Q4H PRN Reason: PAIN - MODERATE TO SEVERE Polyethylene Glycol/Electrolytes (Miralax*) 17 gm PO DAILY PRN Reason: CONSTIPATION Vital Signs 04/23/17 04/23/17 04/23/17 15:29 18:09 19:32 Temperature 97.3 F 98.5 F Pulse Rate 100 104 Respiratory 16 18 17 Rate Blood Pressure 146/75 136/63 (mmHg) O2 Sat by Pulse 96 98 Oximetry 04/23/17 04/23/17 04/24/17 21:53 23:41 03:33 Temperature 98.1 F 98.0 F Pulse Rate 100 102 Respiratory 18 16 16 Rate Blood Pressure 145/64 163/75 (mmHg) O2 Sat by Pulse 96 95 Oximetry 04/24/17 04/24/17 04/24/17 03:54 05:54 07:40 Temperature 97.7 F Pulse Rate 102 Respiratory 20 18 14 Rate Blood Pressure 143/67 (mmHg) O2 Sat by Pulse 97 Oximetry Oxygen Devices in Use Now: None Appearance: NAD, laying in bed Ears/Nose/Mouth/Throat: Mucous Membranes Moist Respiratory: Symmetrical Chest Expansion and Respiratory Effort, Clear to Auscultation Cardiovascular: NL Sounds; No Murmurs; No JVD, RRR Abdominal: NL Sounds; No Tenderness; No Distention Skin: - - Erythema and swelling to right buttock; dressing clean, dry and intact Neurological: Alert and Oriented x 3, NL Muscle Strength and Tone Lines/Tubes/Other Access: Clean, Dry and Intact Peripheral IV - site benign Nutrition: Taking PO's Result Diagrams: 04/23/17 06:27 04/23/17 06:27 Microbiology and Other Data: Microbiology 04/17/17 21:55 Nasal Screen MRSA (PCR)(ELADIO) - Final Nasal Mrsa Negative Assess/Plan/Problems-Billing Assessment: Ms. Whitehead is a 46 yo female with a PMH of DM, obesity, HTN who was admitted on 04/17/17 with right buttock abscess and marked hyperglycemia. - Patient Problems (1) Abscess Code(s): L02.91 - CUTANEOUS ABSCESS, UNSPECIFIED SNOMED Code(s): 789375349 Comment: - Right buttock. - s/p I/D, POD #[address] Mueller. - s/p bedside debridement on 04/20 & 04/22. - WBC remains ~ 18 but improved. Tmax 100.6, now afebrile. CRP ~ 300. - Meeting sepsis criteria on admission with SIRS criteria (tachycardia, fever, and leukocytosis), but not meeting qSofa criteria. Pt was nontoxic appearing at admission. Normal lactic acid on admission. - Pt no longer meeting SIRS criteria (only has leukocytosis at this time), and continues to be nontoxic appearing. - Appreciate ID consult, wound culture thus far with group B strep. - Continue to BID packing changes. - Continue ceftriaxone and flagyl. (2) Diabetes Code(s): E11.9 - TYPE 2 DIABETES MELLITUS WITHOUT COMPLICATIONS SNOMED Code(s) : 61395936 Comment: - Glucose 70-100's. - HgbA1c 14.7. - Patient strongly encouraged and is very interested in follow up with [facility] and Bariatric Surgeon. - Hold metformin and victoza. - Continue lantus (decreased today) and continue SSI coverage. (3) Hypertension Current Visit: Yes Status: Acute Code(s): I10 - ESSENTIAL (PRIMARY) HYPERTENSION SNOMED Code(s): 90656215 Comment: - Hypertensive, SBP 140-170s. - Continue losartan. (4) CKD (chronic kidney disease) stage 3, GFR 30-59 ml/min Code(s): N18.3 - CHRONIC KIDNEY DISEASE, STAGE 3 (MODERATE) SNOMED Code(s): 136655297 Comment: - Suspect this is Pt's baseline. No labs since 2015 (5) DVT prophylaxis Code(s): [id number] - SNOMED Code(s): 012928308 Comment: - Heparin SQ. (6) Full code status Code(s): Z78.9 - OTHER SPECIFIED HEALTH STATUS SNOMED Code(s): 079591418 Status and Disposition: Inpatient. Discharge to home when medically stable, possibly in the AM.
[2017-04-24] MEDS: Magnesium Hydroxide LIQ* 30 ML UDC PO PRN (16:05)
[2017-04-24] MEDS: Atorvastatin* 20 MG TAB PO SCH (16:47)
[2017-04-24] MEDS: Insulin GLARGINE(*) 1 UNITS UNIT SUBCUT SCH (21:26)
[2017-04-25] MEDS: oxyCODONE/Acetamin 5/325 MG* TAB PO PRN ×2 (02:22→14:11)
[2017-04-25] MEDS: metroNIDAZOLE IV 500 MG/100ML* 500 MG/100 ML BAG IVPB SCH ×3 (05:34→23:04)
[2017-04-25] MEDS: Omeprazole CAP* 20 MG PO SCH (05:34)
[2017-04-25] MEDS: Heparin VIAL(*) 5000 UNITS/ML VIAL (FIVE THOUSAND) SUBCUT SCH ×3 (05:35→23:04)
[2017-04-25 07:17] LABS: Hematocrit 28 % (35-47); Hemoglobin 9.3 g/dl (12.0-16.0); Mean Corpuscular HGB Conc 33 g/dl (31-36); Mean Corpuscular Hemoglobin 31 pg (27-31); Mean Corpuscular Volume 94 fL (80-97); Mean Platelet Volume 8 um3 (7.4-10.4); Red Blood Count 3.02 10^6/ul (4.0-5.4); Red Cell Distribution Width 14 % (10.5-15); White Blood Count 14.7 10^3/ul (3.5-10.8)
[2017-04-25] MEDS: Insulin LISPRO* 1 UNITS UNIT SUBCUT SCH ×4 (08:11→20:07)
--- NOTE | 2017-04-25 08:39 | PN ---
Subjective Date of Service: 04/25/17 Interval History: Patient seen and examined at bedside. Denies fever/chills, CP, SOB. The pain to right buttock wound has improved. Discussed discharge planning with patient - main concern is determining who can help patient with dressing changes. She is also interested in changing physicians, as her current physician "does not support me on weight loss surgery." No other complaints at this time. Family History: Unchanged from Admission Social History: Unchanged from Admission Past Medical History: Unchanged from Admission Objective Active Medications: Acetaminophen (Tylenol Tab*) 650 mg PO Q4H PRN PRN Reason: FEVER/PAIN Last Admin: 04/18/17 21:05 Dose: 650 mg Al Hydrox/Mg Hydrox/Simethicone (Maalox Plus*) 30 ml PO Q2H PRN PRN Reason: INDIGESTION Atorvastatin Calcium (Lipitor*) 20 mg PO 1700 JOSE Last Admin: 04/24/17 16:47 Dose: 20 mg Cyclobenzaprine HCl (Flexeril Tab*) 10 mg PO TID PRN PRN Reason: PAIN Last Admin: 04/19/17 16:50 Dose: 10 mg Dextrose (D50w Syringe 50 Ml*) 12.5 gm IV PUSH .FOR FS < 60 - SS PRN PRN Reason: FS < 60 Heparin Sodium (Porcine) (Heparin Vial(*)) 5,000 units SUBCUT Q8HR [facility] [place] Last Admin: 04/25/17 05:35 Dose: 5,000 units Hydromorphone HCl (Dilaudid Iv*) 1 mg IV SLOW PU Q4H PRN PRN Reason: PAIN - BREAKTHROUGH Last Admin: 04/24/17 21:26 Dose: 1 mg Metronidazole/Sodium Chloride (Flagyl 500 Mg Ivpb*) 500 mg in 100 mls @ 100 mls /hr IVPB Q8H [facility] [place] Last Admin: 04/25/17 05:34 Dose: 100 mls/hr Ceftriaxone Sodium 2 gm/ (Sodium Chloride) 100 mls @ 200 mls/hr IVPB Q24H [facility] [place] Last Admin: 04/24/17 15:57 Dose: 200 mls/hr Insulin Glargine (Lantus(*)) 15 units SUBCUT 2100 [facility] [place] Last Admin: 04/24/17 21:26 Dose: 15 units Insulin Glargine (Lantus(*)) 10 units SUBCUT 0900 [facility] [place] Insulin Human Lispro (Humalog*) 0 units SUBCUT ACHS [facility] [place] PRN Reason: Protocol Last Admin: 04/24/17 21:27 Dose: 2 unit Losartan Potassium (Cozaar Tab*) 75 mg PO DAILY [facility] [place] Last Admin: 04/24/17 09:32 Dose: 75 mg Magnesium Hydroxide (Milk Of Magnesia Liq*) 30 ml PO Q6H PRN PRN Reason: CONSTIPATION Last Admin: 04/24/17 16:05 Dose: 30 ml Omeprazole (Prilosec Cap*) 20 mg PO 0600 [facility] [place] Last Admin: 04/25/17 05:34 Dose: 20 mg Ondansetron HCl (Zofran Inj*) 4 mg IV Q4H PRN PRN Reason: NAUSEA Last Admin: 04/19/17 08:42 Dose: 4 mg Oxycodone/Acetaminophen (Percocet 5/325 Tab*) 1 tab PO Q4H PRN PRN Reason: PAIN - MILD TO MODERATE Last Admin: 04/21/17 12:48 Dose: 1 tab Oxycodone/Acetaminophen (Percocet 5/325 Tab*) 2 tab PO Q4H PRN PRN Reason: PAIN - MODERATE TO SEVERE Last Admin: 04/25/17 02:22 Dose: 2 tab Polyethylene Glycol/Electrolytes (Miralax*) 17 gm PO DAILY PRN PRN Reason: CONSTIPATION Last Admin: 04/23/17 18:25 Dose: 17 gm Vital Signs 04/24/17 04/24/17 04/24/17 10:02 11:02 12:01 Temperature 98.1 F Pulse Rate 95 Respiratory 18 16 14 Rate Blood Pressure 141/75 (mmHg) O2 Sat by Pulse 99 Oximetry 04/24/17 04/24/17 04/24/17 13:13 15:13 15:23 Temperature 98.2 F Pulse Rate 104 Respiratory 18 16 16 Rate Blood Pressure 127/63 (mmHg) O2 Sat by Pulse 100 Oximetry 04/24/17 04/24/17 04/24/17 19:27 19:34 19:38 Temperature 97.4 F Pulse Rate 109 Respiratory 16 18 16 Rate Blood Pressure 132/62 (mmHg) O2 Sat by Pulse 96 Oximetry 04/24/17 04/24/17 04/24/17 21:26 21:27 22:26 Temperature Pulse Rate Respiratory 16 16 16 Rate Blood Pressure (mmHg) O2 Sat by Pulse Oximetry 04/24/17 04/25/17 04/25/17 23:35 00:09 02:22 Temperature 97.3 F Pulse Rate 99 Respiratory 16 16 Rate Blood Pressure 165/71 (mmHg) O2 Sat by Pulse 95 Oximetry 04/25/17 04/25/17 04/25/17 02:43 04:22 07:30 Temperature 97.6 F 97.8 F Pulse Rate 96 96 Respiratory 16 14 14 Rate Blood Pressure 145/70 151/69 (mmHg) O2 Sat by Pulse 95 97 Oximetry 04/25/17 07:50 Temperature Pulse Rate Respiratory 16 Rate Blood Pressure (mmHg) O2 Sat by Pulse Oximetry Oxygen Devices in Use Now: None Appearance: Female patient, lying in bed, in NAD Eyes: No Scleral Icterus Ears/Nose/Mouth/Throat: Clear Oropharnyx, Mucous Membranes Moist Neck: NL Appearance and Movements; NL JVP Respiratory: Symmetrical Chest Expansion and Respiratory Effort, Clear to Auscultation Cardiovascular: NL Sounds; No Murmurs; No JVD, RRR Abdominal: NL Sounds; No Tenderness; No Distention Extremities: No Edema Skin: - - Dressing to right buttock c/d/i Neurological: Alert and Oriented x 3, NL Muscle Strength and Tone Lines/Tubes/Other Access: Clean, Dry and Intact Peripheral IV Nutrition: Taking PO's Result Diagrams: 04/25/17 06:25 04/23/17 06:27 Microbiology and Other Data: Microbiology 04/17/17 21:55 Nasal Screen MRSA (PCR)(ELADIO) - Final Nasal Mrsa Negative Assess/Plan/Problems-Billing Assessment: Ms. Whitehead is a 46 yo female with a PMH of DM, obesity, HTN who was admitted on 04/17/17 with right buttock abscess and marked hyperglycemia. - Patient Problems (1) Abscess Code(s): L02.91 - CUTANEOUS ABSCESS, UNSPECIFIED Comment: To right buttock with surrounding cellulitis S/p I/D, POD #[address] Mueller. S/p bedside debridement on 04/20 & 04/22 WBC improving, afebrile Appreciate ID consult, wound culture thus far with group B strep. Continue BID packing changes; plan for surgery to change today for re-eval Continue ceftriaxone and metronidazole. Meets sepsis criteria on admission with SIRS criteria (tachycardia, fever, and leukocytosis), but not meeting qSofa criteria. (2) Diabetes Code(s): E11.9 - TYPE 2 DIABETES MELLITUS WITHOUT COMPLICATIONS Comment: Glucose 70-100's. HgbA1c 14.7. Patient strongly encouraged and is very interested in follow up with [facility] and bariatric surgery. Hold metformin and Victoza. Continue Lantus and continue SSI coverage. (3) Hypertension Code(s): I10 - ESSENTIAL (PRIMARY) HYPERTENSION Comment: SBP 140-150s. Continue losartan. (4) CKD (chronic kidney disease) stage 3, GFR 30-59 ml/min Code(s): N18.3 - CHRONIC KIDNEY DISEASE, STAGE 3 (MODERATE) Comment: Suspect this is pt's baseline. Creatinine trending between 1.1 to 1.3 (5) DVT prophylaxis Comment: SQ heparin (6) Full code status Code(s): Z78.9 - OTHER SPECIFIED HEALTH STATUS Status and Disposition: Inpatient. Discharge to home when medically stable, pending home care and dressing change arrangements.
[2017-04-25] MEDS ORDERED: Insulin GLARGINE(*) 1 UNITS UNIT SUBCUT SCH (09:00)
[2017-04-25] MEDS: Losartan TAB* 25 MG PO SCH (09:05)
[2017-04-25] MEDS: Insulin GLARGINE(*) 1 UNITS UNIT SUBCUT SCH ×2 (09:06→20:07)
--- NOTE | 2017-04-25 12:11 | PN ---
Progress Note - Progress Note Date of Service: 04/25/17 SOAP: Subjective: CC: abscess HPI: 46 yo woman with HHNK and right medial buttock abscess s/p I&D. Pain improved, using less pain medicine. No pain with walking. Eating ok. No fever , rash, or diarrhea. Objective: Vital Signs Temp 36.6 C 04/25/17 07:30 Pulse 96 04/25/17 07:30 Resp 16 04/25/17 07:50 BP 151/69 04/25/17 07:30 Pulse Ox 97 04/25/17 07:30 Intake & Output 04/24/17 04/25/17 04/25/17 18:59 06:59 18:59 Intake Total 1205 695 434 Output Total 2000 300 650 Balance -795 395 -216 Intake: IV Fluids 30 30 134 Metronidazole 30 134 NS (0.9%) 30 IVPB 325 105 ABX - CEFTRIAXONE 110 ABX - FLAGYL 215 Metronidazole 105 Oral 850 560 300 Output: Urine 2000 300 650 Gen:awake, no distress HEENT:PERRL, MMM Neck:Supple Heart:RRR no murmur Lungs:CTA BL Abd:+BS NTND soft Skin: no rash MSK:R medial buttock incision with surrounding induration and receding mild erythema, serous drainage Laboratory Results - last 24 hr 04/24/17 04/24/17 04/24/17 12:23 16:50 21:14 WBC RBC Hgb Hct MCV MCH MCHC RDW Plt Count MPV Neut % (Auto) Lymph % (Auto) Nance % (Auto) Eos % (Auto) Baso % (Auto) Absolute Neuts (auto) Absolute Lymphs (auto) Absolute Monos (auto) Absolute Eos (auto) Absolute Basos (auto) Absolute Nucleated RBC Nucleated RBC % POC Glucose (mg/dL) 93 109 H 142 H 04/25/17 04/25/17 04/25/17 06:25 07:43 10:05 WBC 14.7 H RBC 3.02 L Hgb 9.3 L Hct 28 L MCV 94 MCH 31 MCHC 33 RDW 14 Plt Count 395 MPV 8 Neut % (Auto) 70.0 Lymph % (Auto) 17.9 L Nance % (Auto) 10.3 H Eos % (Auto) 1.6 Baso % (Auto) 0.2 Absolute Neuts (auto) 10.3 H Absolute Lymphs (auto) 2.6 Absolute Monos (auto) 1.5 H Absolute Eos (auto) 0.2 Absolute Basos (auto) 0 Absolute Nucleated RBC 0.01 Nucleated RBC % 0.1 POC Glucose (mg/dL) 75 90 Assessment: 1. R medial buttock abscess s/p I&D; Grp B Strep, likely polymicrobial 2. HHNK state resolved; IDDM 3. morbid obesity 4. PCN allergy 5. CKD Plan: 1. will change antibiotics to levaquin 750 mg daily and flagyl 500 mg po tid on 04/26 to complete 14 days more of abx. Discussed with Perfecto Tejada NP
--- NOTE | 2017-04-25 12:50 | PN ---
Progress Note - Progress Note Date of Service: 04/25/17 SOAP: Subjective: She continues to feel better today-less pain and she had a bowel movement. She is getting out of bed. She still needs pre-medication before dressing changes Objective: Afebrile last 24 hours Temp Pulse Resp BP Pulse Ox 97.8 F 105 14 147/71 95 04/25/17 11:35 04/25/17 11:35 04/25/17 11:35 04/25/17 11:35 04/25/17 11:35 PEX: Right buttock abscess with less erythema and induration, especially laterally. There is still some induration and redness more anteriorly but this is less tender. No odor and there is seropurulent drainage on the packing Packing changed--anteriorly there still is cavity which is hard to pack and requires continued packing. Subcutaneous fat is pink and healthy. Laboratory Results - last 24 hr 04/24/17 04/24/17 04/25/17 16:50 21:14 06:25 WBC 14.7 H RBC 3.02 L Hgb 9.3 L Hct 28 L MCV 94 MCH 31 MCHC 33 RDW 14 Plt Count 395 MPV 8 Neut % (Auto) 70.0 Lymph % (Auto) 17.9 L Monroe % (Auto) 10.3 H Eos % (Auto) 1.6 Baso % (Auto) 0.2 Absolute Neuts (auto) 10.3 H Absolute Lymphs (auto) 2.6 Absolute Monos (auto) 1.5 H Absolute Eos (auto) 0.2 Absolute Basos (auto) 0 Absolute Nucleated RBC 0.01 Nucleated RBC % 0.1 POC Glucose (mg/dL) 109 H 142 H 04/25/17 04/25/17 04/25/17 07:43 10:05 12:18 WBC RBC Hgb Hct MCV MCH MCHC RDW Plt Count MPV Neut % (Auto) Lymph % (Auto) Monroe % (Auto) Eos % (Auto) Baso % (Auto) Absolute Neuts (auto) Absolute Lymphs (auto) Absolute Monos (auto) Absolute Eos (auto) Absolute Basos (auto) Absolute Nucleated RBC Nucleated RBC % POC Glucose (mg/dL) 75 90 88 Assessment: Right buttock abscess s/p I and D post-op day 7 WBC decreasing She remains afebrile Plan: Apparently [facility] will now only go to her home every other day. I think this abscess requires at least daily packing and I don't feel that she is ready for discharge for this reason. I don't think she is a candidate for a wound vac due to its location (keeping a seal, etc.) and acuity, i.e needs to be evaluated on a daily basis. Discussed with Perfecto Tejada-will keep here another 24 hours and I will change the packing in the morning 04/26 and re-assess.
[2017-04-25] MEDS: Ondansetron INJ* 2 MG/ML VIAL IV PRN (12:52)
[2017-04-25] MEDS: Atorvastatin* 20 MG TAB PO SCH (17:30)
[2017-04-25] MEDS: HYDROmorphone* 1 MG/ML 1 ML SYR IV SLOW PU PRN (19:52)
[2017-04-26] MEDS: oxyCODONE/Acetamin 5/325 MG* TAB PO PRN ×3 (00:35→10:29)
[2017-04-26] MEDS: metroNIDAZOLE IV 500 MG/100ML* 500 MG/100 ML BAG IVPB SCH (05:31)
[2017-04-26] MEDS: Omeprazole CAP* 20 MG PO SCH (05:32)
[2017-04-26] MEDS: Heparin VIAL(*) 5000 UNITS/ML VIAL (FIVE THOUSAND) SUBCUT SCH (05:32)
[2017-04-26] MEDS: Insulin LISPRO* 1 UNITS UNIT SUBCUT SCH ×2 (08:43→13:39)
[2017-04-26] MEDS: Insulin GLARGINE(*) 1 UNITS UNIT SUBCUT SCH (09:09)
[2017-04-26] MEDS: Losartan TAB* 25 MG PO SCH (09:09)
--- NOTE | 2017-04-26 11:54 | PN ---
Subjective Date of Service: 04/26/17 Interval History: Patient seen and examined at bedside. Reports improved pain control. Denies fever/chills, chest pain, SOB, abd pain or other complaint. Plan for mother in law, who is a nurse, to change dressing. Patient requesting f/u with [facility] for bariatric referral. No other acute concerns. Family History: Unchanged from Admission Social History: Unchanged from Admission Past Medical History: Unchanged from Admission Objective Active Medications: Acetaminophen (Tylenol Tab*) 650 mg PO Q4H PRN PRN Reason: FEVER/PAIN Last Admin: 04/18/17 21:05 Dose: 650 mg Al Hydrox/Mg Hydrox/Simethicone (Maalox Plus*) 30 ml PO Q2H PRN PRN Reason: INDIGESTION Atorvastatin Calcium (Lipitor*) 20 mg PO 1700 [facility] Last Admin: 04/25/17 17:30 Dose: 20 mg Cyclobenzaprine HCl (Flexeril Tab*) 10 mg PO TID PRN PRN Reason: PAIN Last Admin: 04/19/17 16:50 Dose: 10 mg Dextrose (D50w Syringe 50 Ml*) 12.5 gm IV PUSH .FOR FS < 60 - SS PRN PRN Reason: FS < 60 Heparin Sodium (Porcine) (Heparin Vial(*)) 5,000 units SUBCUT Q8HR [facility] Last Admin: 04/26/17 05:32 Dose: 5,000 units Hydromorphone HCl (Dilaudid Iv*) 1 mg IV SLOW PU Q4H PRN PRN Reason: PAIN - BREAKTHROUGH Last Admin: 04/25/17 19:52 Dose: 1 mg Metronidazole/Sodium Chloride (Flagyl 500 Mg Ivpb*) 500 mg in 100 mls @ 100 mls /hr IVPB Q8H [facility] Last Admin: 04/26/17 05:31 Dose: 100 mls/hr Ceftriaxone Sodium 2 gm/ (Sodium Chloride) 100 mls @ 200 mls/hr IVPB Q24H [facility] Last Admin: 04/25/17 16:25 Dose: 200 mls/hr Insulin Glargine (Lantus(*)) 15 units SUBCUT 2100 [facility] Last Admin: 04/25/17 20:07 Dose: 15 units Insulin Glargine (Lantus(*)) 10 units SUBCUT 0900 [facility] Last Admin: 04/26/17 09:09 Dose: 10 units Insulin Human Lispro (Humalog*) 0 units SUBCUT ACHS [facility] PRN Reason: Protocol Last Admin: 04/26/17 08:43 Dose: Not Given Losartan Potassium (Cozaar Tab*) 75 mg PO DAILY [facility] Last Admin: 04/26/17 09:09 Dose: 75 mg Magnesium Hydroxide (Milk Of Magnesia Liq*) 30 ml PO Q6H PRN PRN Reason: CONSTIPATION Last Admin: 04/24/17 16:05 Dose: 30 ml Omeprazole (Prilosec Cap*) 20 mg PO 0600 [facility] Last Admin: 04/26/17 05:32 Dose: 20 mg Ondansetron HCl (Zofran Inj*) 4 mg IV Q4H PRN PRN Reason: NAUSEA Last Admin: 04/25/17 12:52 Dose: 4 mg Oxycodone/Acetaminophen (Percocet 5/325 Tab*) 1 tab PO Q4H PRN PRN Reason: PAIN - MILD TO MODERATE Last Admin: 04/21/17 12:48 Dose: 1 tab Oxycodone/Acetaminophen (Percocet 5/325 Tab*) 2 tab PO Q4H PRN PRN Reason: PAIN - MODERATE TO SEVERE Last Admin: 04/26/17 10:29 Dose: 2 tab Polyethylene Glycol/Electrolytes (Miralax*) 17 gm PO DAILY PRN PRN Reason: CONSTIPATION Last Admin: 04/23/17 18:25 Dose: 17 gm Vital Signs 04/25/17 04/25/17 04/25/17 14:11 15:32 16:11 Temperature 98.5 F Pulse Rate 108 Respiratory 18 16 Rate Blood Pressure 139/66 (mmHg) O2 Sat by Pulse 91 Oximetry 04/25/17 04/25/17 04/25/17 18:11 19:52 20:07 Temperature 98.3 F Pulse Rate 102 Respiratory 16 20 20 Rate Blood Pressure 129/61 (mmHg) O2 Sat by Pulse 92 Oximetry 04/25/17 04/25/17 04/25/17 20:10 20:46 23:26 Temperature 98.2 F Pulse Rate 104 Respiratory 20 20 18 Rate Blood Pressure 120/64 (mmHg) O2 Sat by Pulse 93 Oximetry 04/26/17 04/26/17 04/26/17 00:35 02:16 03:32 Temperature 98.0 F Pulse Rate 107 Respiratory 22 16 18 Rate Blood Pressure 152/70 (mmHg) O2 Sat by Pulse 94 Oximetry 04/26/17 04/26/17 04/26/17 05:32 07:32 07:52 Temperature 97.6 F Pulse Rate 101 Respiratory 18 16 16 Rate Blood Pressure 146/74 (mmHg) O2 Sat by Pulse 96 Oximetry 04/26/17 04/26/17 08:24 10:29 Temperature Pulse Rate Respiratory 16 18 Rate Blood Pressure (mmHg) O2 Sat by Pulse Oximetry Oxygen Devices in Use Now: None Appearance: Female patient, lying in bed, NAD Eyes: No Scleral Icterus Ears/Nose/Mouth/Throat: Clear Oropharnyx, Mucous Membranes Moist Neck: NL Appearance and Movements; NL JVP Respiratory: Symmetrical Chest Expansion and Respiratory Effort, Clear to Auscultation Cardiovascular: NL Sounds; No Murmurs; No JVD, RRR Neurological: Alert and Oriented x 3, NL Muscle Strength and Tone Lines/Tubes/Other Access: Clean, Dry and Intact Peripheral IV Nutrition: Taking PO's Result Diagrams: 04/25/17 06:25 04/23/17 06:27 Microbiology and Other Data: Microbiology 04/17/17 21:55 Nasal Screen MRSA (PCR)(ELADIO) - Final Nasal Mrsa Negative Assess/Plan/Problems-Billing Assessment: Ms. Whitehead is a 46 yo female with a PMH of DM, obesity, HTN who was admitted on 04/17/17 with right buttock abscess and marked hyperglycemia. - Patient Problems (1) Abscess Code(s): L02.91 - CUTANEOUS ABSCESS, UNSPECIFIED Comment: To right buttock with surrounding cellulitis S/p I/D, POD #[address] Mueller. S/p bedside debridement on 04/20 & 04/22 WBC improving, afebrile Appreciate ID consult D/c today with surgery follow up next week Daily dressing changes - family has been taught Outpt abx of levofloxacin and metronidazole x 14 days Meets sepsis criteria on admission with SIRS criteria (tachycardia, fever, and leukocytosis), but not meeting qSofa criteria. (2) Diabetes Code(s): E11.9 - TYPE 2 DIABETES MELLITUS WITHOUT COMPLICATIONS Comment: Glucose 70-100's. HgbA1c 14.7. Patient strongly encouraged and is very interested in follow up with [facility] and bariatric surgery. Resume home medications upon dc. Patient advised to keep record of BG. D/c home on reduced Levemir, given BG here in hospital. (3) Hypertension Code(s): I10 - ESSENTIAL (PRIMARY) HYPERTENSION Comment: SBP 140-150s. Continue losartan. (4) CKD (chronic kidney disease) stage 3, GFR 30-59 ml/min Code(s): N18.3 - CHRONIC KIDNEY DISEASE, STAGE 3 (MODERATE) Comment: Suspect this is pt's baseline. Creatinine trending between 1.1 to 1.3 (5) DVT prophylaxis Comment: SQ heparin (6) Full code status Code(s): Z78.9 - OTHER SPECIFIED HEALTH STATUS Status and Disposition: Inpatient. Discharge to home.
[2017-04-26 12:27] VITALS: BP 121/70
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
== END 2017-04-26 14:25 | disposition home or self-care (01) | DRG 383 ==
LOC: ED 15:53 → ICU 21:04 → SSU 04-18 21:38
PROVIDERS: ADMIT Internal Medicine; ATTEND Internal Medicine
PROC: 0JB90ZZ Excision of Buttock Subcutaneous Tissue and Fascia, Open Approach (ICD-10-PCS; principal; 2017-04-18 11:00)
DX: L02.31 Cutaneous abscess of buttock (principal); A41.9 Sepsis, unspecified organism; E11.00 Type 2 diabetes mellitus with hyperosmolarity without nonketotic hyperglycemic-hyperosmolar coma (NKHHC); N17.9 Acute kidney failure, unspecified; N18.3 Chronic kidney disease, stage 3 (moderate); E72.51 Non-ketotic hyperglycinemia; Z68.43 Body mass index [BMI] 50.0-59.9, adult; E11.22 Type 2 diabetes mellitus with diabetic chronic kidney disease; L03.317 Cellulitis of buttock; B95.1 Streptococcus, group B, as the cause of diseases classified elsewhere; I12.9 Hypertensive chronic kidney disease with stage 1 through stage 4 chronic kidney disease, or unspecified chronic kidney disease; E11.65 Type 2 diabetes mellitus with hyperglycemia; E78.5 Hyperlipidemia, unspecified; E66.01 Morbid (severe) obesity due to excess calories; R74.8 Abnormal levels of other serum enzymes; Z79.84 Long term (current) use of oral hypoglycemic drugs; Z79.899 Other long term (current) drug therapy; Z82.49 Family history of ischemic heart disease and other diseases of the circulatory system; Z84.89 Family history of other specified conditions; Z87.891 Personal history of nicotine dependence; Z79.4 Long term (current) use of insulin
CPT/HCPCS: 36415; 71010; 74177; 80048; 80053; 80202; 82803; 82947; 83036; 83605; 84484; 85025; 85027; 85610; 85730; 86140; 87040; 87070; 87073; 87077; 87186; 87205; 87640; 87641; 93005; 94760; 99285; A9270-GY; J0692; J0696; J1100; J1170; J1644; J2250; J2405; J2543; J2704; J3010; J3370; Q9967

== ENCOUNTER 2017-04-30 22:55 | Emergency (ER) | payer BC ==
[2017-04-30 23:40] LABS: Hematocrit 26 % (35-47); Hemoglobin 8.6 g/dl (12.0-16.0); Mean Corpuscular HGB Conc 34 g/dl (31-36); Mean Corpuscular Hemoglobin 32 pg (27-31); Mean Corpuscular Volume 94 fL (80-97); Mean Platelet Volume 8 um3 (7.4-10.4); Red Blood Count 2.72 10^6/ul (4.0-5.4); Red Cell Distribution Width 15 % (10.5-15); White Blood Count 10.1 10^3/ul (3.5-10.8)
[2017-04-30 23:56] LABS: Albumin 2.3 g/dL (3.2-5.2); BUN/Creatinine Ratio 13.6 (8-20); C Reactive Protein 20.44 mg/L (< 5.00); Calcium 7.9 mg/dL (8.6-10.3); EGFR Non-African American 43.5 (>60); Globulin 3.7 g/dL (2-4); Potassium 3.9 mmol/L (3.5-5.0); Total Bilirubin 0.2 mg/dL (0.2-1.0)
--- NOTE | 2017-05-01 00:16 | ED ---
I, Oh,Minoo, scribed for Eloy Shen MD on 04/30/17 at 2313 . Complex/Multi-Sys Presentation - HPI Summary HPI Summary: This 46 y/o female presents to ED for acute n/v/d since today. PMHx is significant for recent "skin boil" at her tailbone s/p surgical removal and sepsis. She was discharged 4 days ago from hospital with pending f/u appointment with her primary care provider 2 days later from today. Pt states that her symptoms feels similar to her previous sepsis episode. Positive n/v/d and mild swelling of wound at tailbone. Negative fever. Temperature of 97.5 F is noted at triage. Other PMHx includes IDDM, HTN, and HLD. - History Of Current Complaint Chief Complaint: EDGeneral Time Seen by Provider: 04/30/17 22:56 Hx Obtained From: Patient, Medical Records Onset/Duration: Sudden Onset, Still Present Timing: Constant Associated Signs And Symptoms: Positive: Nausea, Vomiting, Diarrhea - Allergies/Home Medications Allergies/Adverse Reactions: Allergies Allergy/AdvReac Type Severity Reaction Status Date / Time Penicillins [PCN] Allergy Rash Verified 04/30/17 22:58 PMH/Surg Hx/FS Hx/Imm Hx Endocrine/Hematology History: Reports: Hx Diabetes Cardiovascular History: Reports: Hx Hypercholesterolemia, Hx Hypertension Sensory History: Reports: Hx Contacts or Glasses Denies: Hx Hearing Aid Opthamlomology History: Reports: Hx Contacts or Glasses Infectious Disease History: No Infectious Disease History: Denies: Traveled Outside the [place] in Last 30 Days - Family History Known Family History: Positive: Hypertension - Social History Alcohol Use: Rare Substance Use Type: Reports: None Smoking Status (MU): Former Smoker Review of Systems Negative: Fever Positive: Vomiting, Diarrhea, Nausea Positive: Other - swelling of wound at tailbone All Other Systems Reviewed And Are Negative: Yes Physical Exam Triage Information Reviewed: Yes Vital Signs On Initial Exam: Initial Vitals Temp Pulse Resp BP Pulse Ox 97.5 F 114 18 152/91 99 04/30/17 22:59 04/30/17 22:59 04/30/17 22:59 04/30/17 22:59 04/30/17 22:59 Vital Signs Reviewed: Yes Appearance: Positive: Pain Distress - mild discomfort, Obese Skin: Positive: Warm, Other - large granulating abscess cavity rt buttock Head/Face: Positive: Normal Head/Face Inspection Eyes: Positive: GANESH ENT: Positive: Hearing grossly normal Neck: Positive: Supple Respiratory/Lung Sounds: Positive: Clear to Auscultation, Breath Sounds Present Cardiovascular: Positive: RRR Abdomen Description: Positive: Nontender, Soft Bowel Sounds: Positive: Present Musculoskeletal: Positive: Strength/ROM Intact Neurological: Positive: Alert, Oriented to Person Place, Time Psychiatric: Positive: Affect/Mood Appropriate Diagnostics - Vital Signs Vital Signs Temp Pulse Resp BP Pulse Ox 04/30/17 22:59 97.5 F 114 18 152/91 99 - Laboratory Result Diagrams: 04/30/17 23:25 04/30/17 23:25 Lab Statement: Any lab studies that have been ordered have been reviewed, and results considered in the medical decision making process. - CT Pelvis CT Interpretation: No Acute Changes - Stranding infiltration and soft tissue nodularity in the subcutaneous tissues of the right parasagittal buttock consistent with an inflammatory process. No discrete or drainable collection identified. CT Interpretation Completed By: Radiologist Re-Evaluation - Re-Evaluation First Eval Re-Evaluation Time: 02:19 Comment: MD in room to update pt on discharge plan. Complex Multi-Symp Course/Dx Assessment/Plan: This 46 y/o female presents to ED with concern of recurrent sepsis secondary to tailbone "boil". Pt was recently seen in ED for abscess and cellulitis at right buttock, surgical removal, and discharged 4 days ago. She reports n/v/d and swelling of surgical wound since today. Blood work is noted with chronically elevated creatinine and CRP of 20.44. Pt is noted afebrile at triage. Pulse rates of 112 and 104 are noted during ED course. CT Pelvis indicates stranding infiltration and soft tissue nodularity in the subcutaenous tissues of the right parasagittal buttock consistent with an inflammatory process. No discrete or drainable collection identified. - Diagnoses Provider Diagnoses: Abscess Discharge - Discharge Plan Condition: Stable Disposition: HOME Prescriptions: Loperamide CAP* [Imodium CAP*] 2 mg PO Q4H #20 cap Patient Education Materials: Abscess (ED), Cellulitis (ED) Referrals: Immanuel CAMPBELL,Tim Cam [Primary Care Provider] - 2 Days Additional Instructions: Please continue your current treatment. The documentation as recorded by the Gopal puga Soohyun accurately reflects the service I personally performed and the decisions made by me, Eloy Shen MD.
[2017-05-01] MEDS ORDERED: Iodixanol* (CONTRAST) 320 MG/ML 100 ML SDV IV ONE (01:42)
[2017-05-01 02:44] VITALS: BP 139/71
--- NOTE | 2017-05-01 10:22 | RAD ---
Indication: Buttocks abscess. Contrast: Administered 141.2 ml of VISAPAQUE 320 mg/ml CT of the pelvis was obtained in the axial plane. Coronal and sagittal reconstructed images were obtained. The visualized spleen demonstrates hypoperfusion of the spleen in the anterior portion. No retroperitoneal adenopathy is noted. No dilated loops of bowel are noted. Diffuse subcutaneous edema is noted. Uterus and ovaries are unremarkable. Additionally in the right parasagittal region of the right anus and buttocks there is suggestion of some ulceration and induration. Small foci of air is noted. This extends to the perineum. This likely represents inflammatory changes. No discrete drainable fluid collections are noted. IMPRESSION: Inflammatory changes in the soft tissues of the buttocks. No drainable fluid collection is noted. There may be a small ulcer noted in the right buttocks region. Diffuse subcutaneous edema is noted. Hypoperfusion of the left anterior spleen which May represent a small splenic infarct.
== END 2017-05-01 02:56 | disposition home or self-care (01) ==
LOC: ED 22:55
DX: L02.31 Cutaneous abscess of buttock (principal); R11.2 Nausea with vomiting, unspecified; R19.7 Diarrhea, unspecified; Z87.891 Personal history of nicotine dependence
CPT/HCPCS: 36415; 72193; 80053; 83605; 85025; 86140; 87070; 87106; 87205; 99283; Q9967